=== PATIENT | male | born 1985 | race American Indian/Alaskan Native ===

== ENCOUNTER 2018-05-25 15:28 | Emergency (ER) | payer MEDICAID ==
[~2018-05-25] VITALS: Ht 188 cm; Wt 107.7 kg
[2018-05-25 15:38] VITALS: BP 138/86
== END 2018-05-25 15:52 | disposition home or self-care (01) ==
LOC: ER 15:28
DX: S80.11XA Contusion of right lower leg, initial encounter (principal); M79.642 Pain in left hand; G89.29 Other chronic pain; W22.8XXA Striking against or struck by other objects, initial encounter; Y93.89 Activity, other specified; Y92.89 Other specified places as the place of occurrence of the external cause; Y99.8 Other external cause status
CPT/HCPCS: 99283

== ENCOUNTER 2021-10-10 11:54 | Inpatient (IN) | payer MEDICAID ==
[~2021-10-10] VITALS: Ht 188 cm; Wt 129.1 kg
[2021-10-10] MEDS ORDERED: normal saline 1000ml 1,000 ML IV ONE ×2 (12:40)
[2021-10-10] MEDS ORDERED: normal saline 1000ML IV soln IVB ONE ×2 (12:40→14:55)
[2021-10-10 13:07] LABS: BASOPHILS # (AUTO) 0.1 X10'3 (0-0.2); BASOPHILS % (AUTO) 0.3 % (0-1); EOSINOPHILS % (AUTO) 0 % (0-6); HEMATOCRIT 49.9 % (42.0-52.0); HEMOGLOBIN 16.5 g/dl (14.0-17.9); LYMPHOCYTES # (AUTO) 1.9 X10'3 (1.1-4.8); LYMPHOCYTES % (AUTO) 5.2 % (21-51); MEAN CORPUSCULAR HGB CONC 32.9 g/dL (33.0-36.5); MEAN CORPUSCULAR VOLUME 88.1 FL (78-98); MEAN PLATELET VOLUME 9.6 FL (7.4-10.4); MONOCYTES # (AUTO) 3.3 X10'3 (0-0.9); MONOCYTES % (AUTO) 8.9 % (2-12); NEUTROPHILS # (AUTO) 31.4 X10'3 (1.8-7.7); NEUTROPHILS % (AUTO) 85.6 % (42-75); PLATELET COUNT 255 X10'3 (140-440); RED BLOOD COUNT 5.67 X10'6 (4.70-6.10); RED CELL DISTRIBUTION WIDTH 13.8 % (11.5-14.5)
[2021-10-10 13:09] LABS: WHITE BLOOD COUNT 36.7 X10'3 (4.5-11.0)
[2021-10-10 13:34] LABS: ALANINE AMINOTRANSFERASE 113 U/L (12-78); ALBUMIN 4.2 G/DL (3.4-5.0); ALBUMIN/GLOBULIN RATIO 1.3 (1.1-1.5); ALKALINE PHOSPHATASE 72 IU/L (46-116); ANION GAP 21 (8-16); ASPARTATE AMINO TRANSFERASE 489 U/L (10-37); BILIRUBIN,TOTAL 0.9 MG/DL (0.1-1.0); BLOOD UREA NITROGEN 27 MG/DL (7-18); BUN/CREATININE RATIO 6.6 (5.4-32.0); CALCIUM 8.5 MG/DL (8.5-10.1); CHLORIDE 97 MMOL/L (99-107); CREATININE 4.07 MG/DL (0.60-1.10); GLUCOSE 103 MG/DL (70-104); SODIUM 134 MMOL/L (135-145); TOTAL CARBON DIOXIDE 16.2 MMOL/L (24-32); TOTAL PROTEIN 7.5 G/DL (6.4-8.2); eGFR 17 ML/MIN
[2021-10-10 13:36] LABS: LARGE PLATELETS FEW; PLATELET ESTIMATE NORMAL; POTASSIUM 2.9 MMOL/L (3.5-5.1); TOTAL CELLS COUNTED 100
[2021-10-10 14:17] LABS: CREATINE KINASE 38178 U/L (39-308)
[2021-10-10] MEDS ORDERED: potassium Cl 20 mEq SR tablet PO STA (14:27)
[2021-10-10] MEDS ORDERED: CefTRIAXone 2gm/NS 100ml IVPB 100 ML IV ONE (14:55)
[2021-10-10] MEDS ORDERED: vancomycin inj 2,000 MG in normal saline 500ml IV soln 500 ML IV ONE (15:05)
[2021-10-10] MEDS ORDERED: acetaminophen 325mg tablet PO ONE (15:10)
--- NOTE | 2021-10-10 15:10 | NUR ---
dr modi at bedside .
--- NOTE | 2021-10-10 15:17 | NUR ---
TO CT SCAN.
[2021-10-10 15:23] LABS: BASOPHILS # (AUTO) 0.1 X10'3 (0-0.2); BASOPHILS % (AUTO) 0.2 % (0-1); EOSINOPHILS % (AUTO) 0 % (0-6); HEMATOCRIT 45.5 % (42.0-52.0); HEMOGLOBIN 15.2 g/dl (14.0-17.9); LYMPHOCYTES # (AUTO) 1.5 X10'3 (1.1-4.8); LYMPHOCYTES % (AUTO) 4.9 % (21-51); MEAN CORPUSCULAR HEMOGLOBIN 29.1 PG (27.0-31.0); MEAN CORPUSCULAR HGB CONC 33.4 g/dL (33.0-36.5); MEAN CORPUSCULAR VOLUME 87.1 FL (78-98); MEAN PLATELET VOLUME 9.5 FL (7.4-10.4); MONOCYTES # (AUTO) 1.9 X10'3 (0-0.9); MONOCYTES % (AUTO) 6.4 % (2-12); NEUTROPHILS # (AUTO) 26.6 X10'3 (1.8-7.7); NEUTROPHILS % (AUTO) 88.5 % (42-75); PLATELET COUNT 203 X10'3 (140-440); RED BLOOD COUNT 5.23 X10'6 (4.70-6.10); RED CELL DISTRIBUTION WIDTH 13.4 % (11.5-14.5)
[2021-10-10] MEDS ORDERED: vancomycin/NS 1 GM ADD-VANTAGE 250 ML IV ONE ×2 (15:30→17:00)
--- NOTE | 2021-10-10 15:32 | NUR ---
lac with crit jean wbc 30k nurse and informed
[2021-10-10] MEDS ORDERED: magnesium 2GM in 50ml NS 50 ML IV PRN (15:50)
[2021-10-10] MEDS ORDERED: magnesium Cl slow-release 64mg tablet PO PRN (15:50)
[2021-10-10] MEDS ORDERED: magnesium hydroxide 30ml (MOM) UD suspension PO PRN (15:50)
[2021-10-10] MEDS ORDERED: magnesium 4gm in 100ml NS 100 ML IV PRN (15:50)
[2021-10-10] MEDS ORDERED: POTASSIUM BICARB 20meq eff tab 20 MEQ TABLET.EFF PO PRN (15:50)
[2021-10-10] MEDS ORDERED: mag hydrox/Alum hydrox/simeth 30ml oral suspension PO PRN (15:50)
[2021-10-10] MEDS ORDERED: LORazepam 2 mg/ml vial IV PRN (15:50)
[2021-10-10] MEDS ORDERED: potassium Cl 20mEq in NS 1,000 ML IV SCH (15:50)
[2021-10-10] MEDS ORDERED: acetaminophen 650mg rectal suppository RC PRN (15:50)
[2021-10-10] MEDS ORDERED: acetaminophen 325mg tablet PO PRN (15:50)
[2021-10-10] MEDS ORDERED: ondansetron 4mg rapidly disintigrating tab PO PRN (15:50)
[2021-10-10] MEDS ORDERED: bisacodyl 10mg suppository rectal RC PRN (15:50)
[2021-10-10] MEDS ORDERED: ondansetron/PF 4mg/2ml inj IV PRN (15:50)
[2021-10-10] MEDS ORDERED: potassium CL 10mEq/100ml bag 100 ML IV PRN (15:50)
--- NOTE | 2021-10-10 16:00 | NUR ---
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
--- NOTE | 2021-10-10 16:09 | NUR ---
Eric barksdale in [facility] - 10/10/21 at 1610 by YVES PT MOVED FROM FT TO MAIN ER ROOM 12, REPORT RECIEVED FROM FT NURSE
--- NOTE | 2021-10-10 16:23 | NUR ---
NOTIFIED THE PHARMACIST THAT UNABLE TO VANCOMYCIN AND PT KIDNEY FUNCTION IS BAD CRE IS ABOVE 4 AND THERE IS ORDER FOR POTASSIUM AND VANCOMYCIN,PT RECIVED 40 MEQ POTASSIUM PO ONCE PER DR ROWLEY DO NOT ADMIN MORE k+ PT KIDNEY FUNCTION IS NOT WITHIN RANGE.
[2021-10-10] MEDS ORDERED: NO HOME MEDS (16:50)
--- NOTE | 2021-10-10 16:55 | NUR ---
spoke to dr modi regarding pottasium level and informed that pt recived the 40 meq of potassium po once and pt creatnine is above 4 is it okay to start the potassium 20 meq drip started ? as per dr modi cancel potassium drip and change to n.s at 150 ml/hr.repeat the k+level in 1 hr and then replace the k+ based on patient k+ level .will follow the orders.
[2021-10-10] MEDS: normal saline 1000ml 1,000 ML IV SCH (17:33)
[2021-10-10] MEDS: LORazepam 2 mg/ml vial IV PRN ×2 (17:43→22:01)
--- NOTE | 2021-10-10 18:46 | NUR ---
ASSUMED CARE OF PT. RECIEVED BEDSIDE REPORT. PT SITTING UP IN BED. 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 RN REPORTS THIS IS NOT A NEW DEVELOPMENT.
[2021-10-10] MEDS: K and/or MAG REPLACEMENT MC SCH (20:12)
[2021-10-10] MEDS: POTASSIUM BICARB 20meq eff tab 20 MEQ TABLET.EFF PO PRN (20:12)
[2021-10-10] MEDS: LORazepam 0.5 MG tablet PO PRN (20:13)
[2021-10-10] MEDS: heparin, porcine 5000 units/ml vial SQ SCH (20:14)
[2021-10-10 20:46] LABS: CLARITY,URINE CLEAR (Clear); COLOR,URINE YELLOW (Yellow); GLUCOSE, URINE NEGATIVE (Neg); KETONES,URINE NEGATIVE (Neg); LEUKOCYTE ESTERASE ,URINE NEGATIVE (Neg); NITRITES, URINE NEGATIVE (Neg); OCCULT BLOOD,URINE LARGE (Neg); PH,URINE 5.5 (4.8-8.0); PROTEIN,URINE 100 mg/dl (Neg); UROBILINOGEN,URINE 0.2 E.U/dL (0.2-1.0)
[2021-10-10 20:50] LABS: UA COLLECTION TYPE NON-SPECIFIED
[2021-10-10 21:00] LABS: BACTERIA,URINE FEW /HPF (Neg); HYALINE CASTS 0-3 /LPF (NEGATIVE); MUCUS STRANDS FEW /LPF (Neg); SQUAMOUS EPITHELIAL CELL,UR FEW /LPF (FEW)
[2021-10-10] MEDS ORDERED: temazepam 15mg capsule PO PRN (21:00)
[2021-10-10 21:01] LABS: FINE GRANULAR CAST 0-3 /LPF (NEGATIVE)
[2021-10-11] MEDS: normal saline 1000ml 1,000 ML IV SCH ×4 (00:10→16:02)
[2021-10-11 01:48] LABS: BASOPHILS % (AUTO) 0.2 % (0-1); EOSINOPHILS % (AUTO) 0 % (0-6); HEMOGLOBIN 14.5 g/dl (14.0-17.9); LYMPHOCYTES # (AUTO) 2.2 X10'3 (1.1-4.8); LYMPHOCYTES % (AUTO) 8.2 % (21-51); MEAN CORPUSCULAR HEMOGLOBIN 29.8 PG (27.0-31.0); MEAN CORPUSCULAR HGB CONC 33.8 g/dL (33.0-36.5); MEAN CORPUSCULAR VOLUME 88.1 FL (78-98); MEAN PLATELET VOLUME 9.8 FL (7.4-10.4); MONOCYTES # (AUTO) 1.5 X10'3 (0-0.9); MONOCYTES % (AUTO) 5.6 % (2-12); NEUTROPHILS # (AUTO) 22.8 X10'3 (1.8-7.7); PLATELET COUNT 187 X10'3 (140-440); RED BLOOD COUNT 4.88 X10'6 (4.70-6.10); RED CELL DISTRIBUTION WIDTH 13.6 % (11.5-14.5)
[2021-10-11 02:02] LABS: WHITE BLOOD COUNT 26.5 X10'3 (4.5-11.0)
[2021-10-11 02:11] LABS: ALANINE AMINOTRANSFERASE 110 U/L (12-78); ALBUMIN 3.2 G/DL (3.4-5.0); ALBUMIN/GLOBULIN RATIO 1.1 (1.1-1.5); ALKALINE PHOSPHATASE 53 IU/L (46-116); ANION GAP 12 (8-16); ASPARTATE AMINO TRANSFERASE 403 U/L (10-37); BILIRUBIN,TOTAL 1.1 MG/DL (0.1-1.0); BLOOD UREA NITROGEN 25 MG/DL (7-18); BUN/CREATININE RATIO 10.6 (5.4-32.0); CALCIUM 7.8 MG/DL (8.5-10.1); CHLORIDE 103 MMOL/L (99-107); CREATININE 2.36 MG/DL (0.60-1.10); GLUCOSE 134 MG/DL (70-104); MAGNESIUM 1.8 MG/DL (1.5-2.4); POTASSIUM 3.8 MMOL/L (3.5-5.1); SODIUM 133 MMOL/L (135-145); TOTAL CARBON DIOXIDE 17.6 MMOL/L (24-32); TOTAL PROTEIN 6.1 G/DL (6.4-8.2); eGFR 32 ML/MIN
[2021-10-11 03:45] LABS: TOTAL CELLS COUNTED 100
[2021-10-11 03:46] LABS: PLATELET ESTIMATE NORMAL; TOXIC GRANULATION 1+
--- NOTE | 2021-10-11 04:14 | NUR ---
PT HAD A LARGE VERY LOOSE BM. LINENS CHANGED
--- NOTE | 2021-10-11 05:01 | NUR ---
PT MOVED TO HOSPITAL BED FOR MORE COMFORT.
[2021-10-11] MEDS: LORazepam 2 mg/ml vial IV PRN (05:06)
[2021-10-11] MEDS ORDERED: LORazepam 2 mg/ml vial IV ONE (05:20)
--- NOTE | 2021-10-11 05:23 | NUR ---
TALKED TO DR MO CONCERNING PT'S HEART RATE. HAVE GIVEN ATIVAN BUT PT IS LARGE. HE GAVE TELEPHONE FOR 2 MG OF ATIVAN IV NOW.
[2021-10-11] MEDS: K and/or MAG REPLACEMENT MC SCH ×2 (07:38→20:17)
[2021-10-11] MEDS: heparin, porcine 5000 units/ml vial SQ SCH ×2 (07:48→20:21)
[2021-10-11] MEDS ORDERED: cefTRIAXone 1g/NS 100ml IVPB 100 ML IV SCH (08:00)
[2021-10-11 09:46] LABS: HIV ANTIBODY 1&2 RAPID NON-REACTIVE (Neg)
[2021-10-11 09:58] LABS: CREATINE KINASE 29643 U/L (39-308)
[2021-10-11] MEDS: piperacillin/tazo 3.375gm/50ml 50 ML IV SCH ×2 (10:29→16:02)
[2021-10-11 12:49] LABS: URINE AMPHETAMINE SCREEN POSITIVE (Neg); URINE BARBITUATE SCREEN NEGATIVE (Neg); URINE BENZODIAZEPINES SCREEN NEGATIVE (Neg); URINE CANNABINOID SCREEN NEGATIVE (Neg); URINE COCAINE SCREEN NEGATIVE (Neg); URINE METHADONE SCREEN NEGATIVE (Neg); URINE OPIATE SCREEN NEGATIVE (Neg); URINE PHENCYCLIDINE SCREEN NEGATIVE (Neg)
[2021-10-11 14:53] LABS: CREATINE KINASE 29628 U/L (39-308)
[2021-10-11] MEDS ORDERED: VANCOMYCIN 750MG IV in NS 250 ML IV SCH (17:00)
[2021-10-11] MEDS: vancomycin/NS 1 GM ADD-VANTAGE 250 ML IV SCH (17:30)
[2021-10-11 20:29] VITALS: BP 131/75
--- NOTE | 2021-10-11 20:32 | NUR ---
PT placed on TELE per MD order. Pt tele #[id number]
[2021-10-11 20:37] LABS: CREATINE KINASE 34066 U/L (39-308)
[2021-10-12] MEDS: piperacillin/tazo 3.375gm/50ml 50 ML IV SCH ×3 (00:21→17:13)
--- NOTE | 2021-10-12 00:37 | NUR ---
received call from tele pt had high bp of 140, with rr in the 40s. pt laying on stomach. pt denies any chest pain or discomfort. MD Archuleta notified. new orders received and imputed.
[2021-10-12] MEDS: sodium bicarbonate (8.4%) inj. 150 MEQ in dextrose 5%-water 1,000 ML IV SCH ×4 (01:13→23:30)
[2021-10-12 02:31] LABS: BASOPHILS % (AUTO) 0.2 % (0-1); EOSINOPHILS % (AUTO) 0 % (0-6); HEMATOCRIT 35.7 % (42.0-52.0); HEMOGLOBIN 12.1 g/dl (14.0-17.9); LYMPHOCYTES # (AUTO) 1.5 X10'3 (1.1-4.8); LYMPHOCYTES % (AUTO) 8.7 % (21-51); MEAN CORPUSCULAR HEMOGLOBIN 29.4 PG (27.0-31.0); MEAN CORPUSCULAR VOLUME 86.4 FL (78-98); MEAN PLATELET VOLUME 9.7 FL (7.4-10.4); MONOCYTES % (AUTO) 5.7 % (2-12); NEUTROPHILS # (AUTO) 14.8 X10'3 (1.8-7.7); NEUTROPHILS % (AUTO) 85.4 % (42-75); PLATELET COUNT 117 X10'3 (140-440); RED BLOOD COUNT 4.13 X10'6 (4.70-6.10); RED CELL DISTRIBUTION WIDTH 13.2 % (11.5-14.5); WHITE BLOOD COUNT 17.3 X10'3 (4.5-11.0)
--- NOTE | 2021-10-12 02:59 | NUR ---
PTs 20G in L ac as well as 20G in R wrist became compromised. no s/s of redness or infiltration. PT denies any c/o pain to the sites. New 20G placed in L posterior forearm. Flushes well, no c/o pain to the site. Infusions running per MD order.
[2021-10-12 03:27] LABS: ALANINE AMINOTRANSFERASE 168 U/L (12-78); ALBUMIN 2.6 G/DL (3.4-5.0); ALBUMIN/GLOBULIN RATIO 0.9 (1.1-1.5); ALKALINE PHOSPHATASE 46 IU/L (46-116); ANION GAP 11 (8-16); ASPARTATE AMINO TRANSFERASE 590 U/L (10-37); BILIRUBIN,TOTAL 0.5 MG/DL (0.1-1.0); BLOOD UREA NITROGEN 17 MG/DL (7-18); BUN/CREATININE RATIO 10.3 (5.4-32.0); CALCIUM 7.9 MG/DL (8.5-10.1); CHLORIDE 106 MMOL/L (99-107); CREATININE 1.65 MG/DL (0.60-1.10); GLUCOSE 121 MG/DL (70-104); POTASSIUM 3.5 MMOL/L (3.5-5.1); SODIUM 137 MMOL/L (135-145); TOTAL CARBON DIOXIDE 20.2 MMOL/L (24-32); TOTAL PROTEIN 5.6 G/DL (6.4-8.2); eGFR 48 ML/MIN
[2021-10-12 03:46] LABS: CREATINE KINASE 35385 U/L (39-308)
[2021-10-12 04:00] VITALS: BP 131/72
[2021-10-12] MEDS: vancomycin/NS 1 GM ADD-VANTAGE 250 ML IV SCH ×2 (05:40→16:54)
--- NOTE | 2021-10-12 06:24 | NUR ---
I agree with RENU Archer assessments, documentation, and report given to RENU Pastrana
--- NOTE | 2021-10-12 06:34 | NUR ---
reported off to misa nguyen.
--- NOTE | 2021-10-12 06:37 | NUR ---
Patient in room ORTHO 4010. I have received report from RENU Archer and had the opportunity to ask questions and assume patient care.
[2021-10-12] MEDS ORDERED: PERFLUTREN PROTEIN-A MICROSPHR (Optison) 0.22 MG/ML 3ML VIAL IV ONE (08:00)
[2021-10-12] MEDS: K and/or MAG REPLACEMENT MC SCH ×2 (08:00→19:56)
[2021-10-12] MEDS: heparin, porcine 5000 units/ml vial SQ SCH ×2 (08:19→19:51)
[2021-10-12 10:00] VITALS: BP 130/78
[2021-10-12 11:08] LABS: HBSAG SCREEN Negative (Negative); HEP A AB, IGM Negative (Negative); HEPATITIS C ANTIBODY >11.0 s/co ratio (0.0-0.9)
[2021-10-12 11:33] LABS: CREATINE KINASE 31758 U/L (39-308)
[2021-10-12 13:11] LABS: CREATINE KINASE 27260 U/L (39-308)
[2021-10-12 14:00] VITALS: BP 135/77
[2021-10-12 18:00] VITALS: BP 131/65
--- NOTE | 2021-10-12 18:50 | NUR ---
Problems reprioritized. Patient report given, questions answered & plan of care reviewed with RENU Shepherd.
--- NOTE | 2021-10-12 18:52 | NUR ---
Patient in room ORTHO 4010. I have received report from DUNCAN SEARS and had the opportunity to ask questions and assume patient care.
[2021-10-12 19:33] LABS: CREATINE KINASE 9379 U/L (39-308)
[2021-10-12 22:00] VITALS: BP 146/86
[2021-10-13] MEDS: piperacillin/tazo 3.375gm/50ml 50 ML IV SCH ×4 (00:27→23:48)
[2021-10-13] MEDS: sodium bicarbonate (8.4%) inj. 150 MEQ in dextrose 5%-water 1,000 ML IV SCH (03:42)
[2021-10-13] MEDS ORDERED: VANCOMYCIN LEVEL IV ONE (04:30)
[2021-10-13 05:30] VITALS: BP 150/78
[2021-10-13] MEDS: vancomycin/NS 1 GM ADD-VANTAGE 250 ML IV SCH (05:41)
--- NOTE | 2021-10-13 06:45 | NUR ---
Patient in room ORTHO 4010. I have received report from Charley Whitehead RN and had the opportunity to ask questions and assume patient care.
[2021-10-13 07:15] LABS: BASOPHILS % (AUTO) 0.4 % (0-1); EOSINOPHILS # (AUTO) 0.1 X10'3 (0-0.9); EOSINOPHILS % (AUTO) 0.7 % (0-6); HEMATOCRIT 35.6 % (42.0-52.0); HEMOGLOBIN 12.1 g/dl (14.0-17.9); LYMPHOCYTES # (AUTO) 1.5 X10'3 (1.1-4.8); MEAN CORPUSCULAR HEMOGLOBIN 29.9 PG (27.0-31.0); MEAN CORPUSCULAR HGB CONC 33.9 g/dL (33.0-36.5); MEAN CORPUSCULAR VOLUME 88.1 FL (78-98); MEAN PLATELET VOLUME 10.7 FL (7.4-10.4); MONOCYTES # (AUTO) 0.6 X10'3 (0-0.9); MONOCYTES % (AUTO) 5.2 % (2-12); NEUTROPHILS # (AUTO) 8.7 X10'3 (1.8-7.7); NEUTROPHILS % (AUTO) 79.7 % (42-75); PLATELET COUNT 153 X10'3 (140-440); RED BLOOD COUNT 4.05 X10'6 (4.70-6.10); RED CELL DISTRIBUTION WIDTH 13.3 % (11.5-14.5); WHITE BLOOD COUNT 10.9 X10'3 (4.5-11.0)
[2021-10-13 07:21] LABS: ALANINE AMINOTRANSFERASE 235 U/L (12-78); ALBUMIN 2.3 G/DL (3.4-5.0); ALBUMIN/GLOBULIN RATIO 0.7 (1.1-1.5); ALKALINE PHOSPHATASE 46 IU/L (46-116); ANION GAP 6 (8-16); ASPARTATE AMINO TRANSFERASE 468 U/L (10-37); BILIRUBIN,TOTAL 0.5 MG/DL (0.1-1.0); BLOOD UREA NITROGEN 10 MG/DL (7-18); BUN/CREATININE RATIO 7.4 (5.4-32.0); CHLORIDE 106 MMOL/L (99-107); CREATININE 1.36 MG/DL (0.60-1.10); GLUCOSE 101 MG/DL (70-104); POTASSIUM 3.2 MMOL/L (3.5-5.1); SODIUM 141 MMOL/L (135-145); TOTAL CARBON DIOXIDE 29.1 MMOL/L (24-32); TOTAL PROTEIN 5.5 G/DL (6.4-8.2); eGFR 60 ML/MIN
[2021-10-13 07:32] LABS: VANCOMYCIN,TROUGH 7.8 UG/ML (6.0-14.0)
[2021-10-13] MEDS: K and/or MAG REPLACEMENT MC SCH ×2 (07:47→20:00)
[2021-10-13 08:24] LABS: CREATINE KINASE 5695 U/L (39-308)
[2021-10-13 10:00] VITALS: BP 125/76
[2021-10-13] MEDS: normal saline 1000ml 1,000 ML IV SCH ×3 (11:10→23:49)
[2021-10-13] MEDS: acetaminophen 325mg tablet PO PRN (11:27)
[2021-10-13] MEDS: heparin, porcine 5000 units/ml vial SQ SCH ×2 (12:10→20:02)
[2021-10-13] MEDS: POTASSIUM BICARB 20meq eff tab 20 MEQ TABLET.EFF PO PRN ×3 (12:14→20:08)
--- NOTE | 2021-10-13 13:12 | NUR ---
Patient in room ORTHO 4010. I have received report from Cassy and had the opportunity to ask questions and assume patient care.
--- NOTE | 2021-10-13 13:30 | NUR ---
Problems reprioritized. Patient report given, questions answered & plan of care reviewed with RENU Huber.
[2021-10-13 14:00] VITALS: BP 134/77
[2021-10-13] MEDS ORDERED: magnesium 2GM in 50ml NS 50 ML IV PRN (16:05)
[2021-10-13] MEDS ORDERED: POTASSIUM BICARB 20meq eff tab 20 MEQ TABLET.EFF PO PRN (16:05)
[2021-10-13] MEDS ORDERED: magnesium Cl slow-release 64mg tablet PO PRN (16:05)
[2021-10-13] MEDS ORDERED: potassium CL 10mEq/100ml bag 100 ML IV PRN (16:10)
[2021-10-13] MEDS ORDERED: magnesium 4gm in 100ml NS 100 ML IV PRN (16:10)
[2021-10-13] MEDS ORDERED: VANCOmycin 1250MG/NS 250ml Bag 250 ML IV SCH (17:00)
[2021-10-13 18:00] VITALS: BP 129/80
--- NOTE | 2021-10-13 18:35 | NUR ---
Problems reprioritized. Patient report given, questions answered & plan of care reviewed with Cora.
--- NOTE | 2021-10-13 18:40 | NUR ---
Patient in room ORTHO 4010. I have received report from LANETTE Sue RN and had the opportunity to ask questions and assume patient care.
[2021-10-13 22:00] VITALS: BP 127/77
[2021-10-14 06:00] VITALS: BP 131/81
--- NOTE | 2021-10-14 06:27 | NUR ---
Problems reprioritized. Patient report given, questions answered & plan of care reviewed with ОЛЕГ SEARS.
--- NOTE | 2021-10-14 06:47 | NUR ---
Patient in room ORTHO 4010. I have received report from RENU Sharma and had the opportunity to ask questions and assume patient care.
--- NOTE | 2021-10-14 07:46 | NUR ---
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 Currently on Regular diet w/ 100% intake of meals though only partially meeting needs. Will provide double protein TID to assist w/ meeting increased needs. [facility] 10/13. Will continue to monitor and make recommendations as appropriate. Recs: 1. Continue Regular diet as tolerated 2. Double protein TID 3. Bowel care per rx 4. Weekly wts Addendum: 10/14/21 at [address] Amended: Links added.
[2021-10-14] MEDS: piperacillin/tazo 3.375gm/50ml 50 ML IV SCH ×3 (07:47→23:43)
[2021-10-14 07:49] LABS: BASOPHILS % (AUTO) 0.4 % (0-1); EOSINOPHILS # (AUTO) 0.2 X10'3 (0-0.9); EOSINOPHILS % (AUTO) 1.3 % (0-6); HEMATOCRIT 35.6 % (42.0-52.0); HEMOGLOBIN 11.8 g/dl (14.0-17.9); LYMPHOCYTES # (AUTO) 1.6 X10'3 (1.1-4.8); LYMPHOCYTES % (AUTO) 13.3 % (21-51); MEAN CORPUSCULAR VOLUME 87.9 FL (78-98); MEAN PLATELET VOLUME 10.9 FL (7.4-10.4); MONOCYTES # (AUTO) 0.8 X10'3 (0-0.9); MONOCYTES % (AUTO) 7.1 % (2-12); NEUTROPHILS # (AUTO) 9.1 X10'3 (1.8-7.7); NEUTROPHILS % (AUTO) 77.9 % (42-75); PLATELET COUNT 182 X10'3 (140-440); RED BLOOD COUNT 4.05 X10'6 (4.70-6.10); RED CELL DISTRIBUTION WIDTH 13.4 % (11.5-14.5); WHITE BLOOD COUNT 11.7 X10'3 (4.5-11.0)
[2021-10-14] MEDS: acetaminophen 325mg tablet PO PRN ×2 (07:50→19:48)
[2021-10-14] MEDS: heparin, porcine 5000 units/ml vial SQ SCH ×2 (07:56→19:47)
[2021-10-14] MEDS: K and/or MAG REPLACEMENT MC SCH ×2 (08:00→19:50)
[2021-10-14 08:21] LABS: ALANINE AMINOTRANSFERASE 294 U/L (12-78); ALBUMIN 2.5 G/DL (3.4-5.0); ALBUMIN/GLOBULIN RATIO 0.7 (1.1-1.5); ALKALINE PHOSPHATASE 53 IU/L (46-116); ANION GAP 7 (8-16); ASPARTATE AMINO TRANSFERASE 402 U/L (10-37); BILIRUBIN,TOTAL 0.6 MG/DL (0.1-1.0); BLOOD UREA NITROGEN 9 MG/DL (7-18); CALCIUM 8.3 MG/DL (8.5-10.1); CHLORIDE 107 MMOL/L (99-107); CREATININE 1.28 MG/DL (0.60-1.10); GLUCOSE 91 MG/DL (70-104); MAGNESIUM 2.1 MG/DL (1.5-2.4); POTASSIUM 3.8 MMOL/L (3.5-5.1); SODIUM 138 MMOL/L (135-145); TOTAL PROTEIN 5.9 G/DL (6.4-8.2); eGFR 64 ML/MIN
[2021-10-14 08:37] LABS: CREATINE KINASE 15579 U/L (39-308)
[2021-10-14] MEDS: normal saline 1000ml 1,000 ML IV SCH ×2 (09:59→19:47)
[2021-10-14 10:00] VITALS: BP 147/76
--- NOTE | 2021-10-14 18:50 | NUR ---
Today I was off ratio again with 6 patients so medication administration and patient care was delayed.
--- NOTE | 2021-10-14 18:51 | NUR ---
Problems reprioritized. Patient report given, questions answered & plan of care reviewed with RENU Be.
[2021-10-14 22:00] VITALS: BP 141/79
[2021-10-15] MEDS: normal saline 1000ml 1,000 ML IV SCH ×3 (03:10→21:07)
[2021-10-15] MEDS ORDERED: VANCOMYCIN LEVEL IV ONE (04:30)
[2021-10-15 05:04] LABS: BASOPHILS % (AUTO) 0.3 % (0-1); EOSINOPHILS # (AUTO) 0.2 X10'3 (0-0.9); EOSINOPHILS % (AUTO) 2.2 % (0-6); HEMATOCRIT 37.3 % (42.0-52.0); HEMOGLOBIN 12.6 g/dl (14.0-17.9); LYMPHOCYTES # (AUTO) 1.6 X10'3 (1.1-4.8); LYMPHOCYTES % (AUTO) 15.3 % (21-51); MEAN CORPUSCULAR HEMOGLOBIN 29.5 PG (27.0-31.0); MEAN CORPUSCULAR HGB CONC 33.9 g/dL (33.0-36.5); MEAN PLATELET VOLUME 10.4 FL (7.4-10.4); MONOCYTES # (AUTO) 0.8 X10'3 (0-0.9); MONOCYTES % (AUTO) 7.2 % (2-12); NEUTROPHILS # (AUTO) 7.9 X10'3 (1.8-7.7); PLATELET COUNT 212 X10'3 (140-440); RED BLOOD COUNT 4.28 X10'6 (4.70-6.10); RED CELL DISTRIBUTION WIDTH 13.1 % (11.5-14.5); WHITE BLOOD COUNT 10.6 X10'3 (4.5-11.0)
[2021-10-15 05:09] LABS: ALANINE AMINOTRANSFERASE 223 U/L (12-78); ALBUMIN 2.5 G/DL (3.4-5.0); ALBUMIN/GLOBULIN RATIO 0.7 (1.1-1.5); ALKALINE PHOSPHATASE 53 IU/L (46-116); ANION GAP 6 (8-16); ASPARTATE AMINO TRANSFERASE 180 U/L (10-37); BILIRUBIN,TOTAL 0.4 MG/DL (0.1-1.0); BLOOD UREA NITROGEN 11 MG/DL (7-18); BUN/CREATININE RATIO 9.2 (5.4-32.0); CALCIUM 8.4 MG/DL (8.5-10.1); CHLORIDE 108 MMOL/L (99-107); GLUCOSE 94 MG/DL (70-104); POTASSIUM 4.1 MMOL/L (3.5-5.1); SODIUM 139 MMOL/L (135-145); TOTAL CARBON DIOXIDE 24.7 MMOL/L (24-32); TOTAL PROTEIN 6.1 G/DL (6.4-8.2); eGFR 69 ML/MIN
[2021-10-15 05:18] LABS: MAGNESIUM 2.2 MG/DL (1.5-2.4); PHOSPHORUS 3.6 MG/DL (2.3-4.5); VANCOMYCIN,TROUGH 2.4 UG/ML (6.0-14.0)
[2021-10-15 05:20] LABS: CREATINE KINASE 4725 U/L (39-308)
[2021-10-15 06:00] VITALS: BP 135/85
--- NOTE | 2021-10-15 06:35 | NUR ---
Problems reprioritized. Patient report given, questions answered & plan of care reviewed with RENU Valadez.
--- NOTE | 2021-10-15 06:54 | NUR ---
Patient in room ORTHO 4010. I have received report from RENU Be and had the opportunity to ask questions and assume patient care.
[2021-10-15] MEDS: heparin, porcine 5000 units/ml vial SQ SCH ×2 (07:21→21:06)
[2021-10-15] MEDS: piperacillin/tazo 3.375gm/50ml 50 ML IV SCH ×3 (07:21→23:35)
[2021-10-15] MEDS: LORazepam 0.5 MG tablet PO PRN ×2 (07:22→12:48)
[2021-10-15] MEDS: K and/or MAG REPLACEMENT MC SCH ×2 (07:30→20:00)
[2021-10-15 10:00] VITALS: BP 137/78
--- NOTE | 2021-10-15 12:18 | NUR ---
Put in order for wound care consult for scabs on underwear line and blister in between buttocks.
[2021-10-15] MEDS: acetaminophen 325mg tablet PO PRN ×2 (14:11→21:08)
[2021-10-15] MEDS: LORazepam 1 MG tablet PO PRN ×2 (16:40→21:08)
--- NOTE | 2021-10-15 17:52 | NUR ---
Called tele box - patient is in SR in the 's.
[2021-10-15 18:00] VITALS: BP 132/80
--- NOTE | 2021-10-15 18:33 | NUR ---
Problems reprioritized. Patient report given, questions answered & plan of care reviewed with RENU Be.
[2021-10-15 22:00] VITALS: BP 135/75
[2021-10-16 02:00] VITALS: BP 124/71
[2021-10-16] MEDS: normal saline 1000ml 1,000 ML IV SCH ×3 (03:21→21:17)
[2021-10-16 06:00] VITALS: BP 135/86
[2021-10-16 06:12] LABS: BASOPHILS # (AUTO) 0.1 X10'3 (0-0.2); BASOPHILS % (AUTO) 0.8 % (0-1); EOSINOPHILS # (AUTO) 0.2 X10'3 (0-0.9); EOSINOPHILS % (AUTO) 2.5 % (0-6); HEMATOCRIT 39.6 % (42.0-52.0); HEMOGLOBIN 13.2 g/dl (14.0-17.9); LYMPHOCYTES # (AUTO) 1.5 X10'3 (1.1-4.8); LYMPHOCYTES % (AUTO) 16.1 % (21-51); MEAN CORPUSCULAR HEMOGLOBIN 29.2 PG (27.0-31.0); MEAN CORPUSCULAR HGB CONC 33.4 g/dL (33.0-36.5); MEAN CORPUSCULAR VOLUME 87.3 FL (78-98); MEAN PLATELET VOLUME 10.2 FL (7.4-10.4); MONOCYTES # (AUTO) 0.7 X10'3 (0-0.9); MONOCYTES % (AUTO) 7.6 % (2-12); PLATELET COUNT 245 X10'3 (140-440); RED BLOOD COUNT 4.54 X10'6 (4.70-6.10); RED CELL DISTRIBUTION WIDTH 13.1 % (11.5-14.5); WHITE BLOOD COUNT 9.6 X10'3 (4.5-11.0)
--- NOTE | 2021-10-16 06:32 | NUR ---
Problems reprioritized. Patient report given, questions answered & plan of care reviewed with RENU Tesfaye.
[2021-10-16 06:50] LABS: ALANINE AMINOTRANSFERASE 192 U/L (12-78); ALBUMIN 2.7 G/DL (3.4-5.0); ALBUMIN/GLOBULIN RATIO 0.7 (1.1-1.5); ALKALINE PHOSPHATASE 56 IU/L (46-116); ANION GAP 6 (8-16); ASPARTATE AMINO TRANSFERASE 84 U/L (10-37); BILIRUBIN,TOTAL 0.4 MG/DL (0.1-1.0); BLOOD UREA NITROGEN 12 MG/DL (7-18); BUN/CREATININE RATIO 9.7 (5.4-32.0); CALCIUM 8.5 MG/DL (8.5-10.1); CHLORIDE 106 MMOL/L (99-107); CREATININE 1.24 MG/DL (0.60-1.10); GLUCOSE 85 MG/DL (70-104); MAGNESIUM 2.3 MG/DL (1.5-2.4); PHOSPHORUS 3.9 MG/DL (2.3-4.5); POTASSIUM 3.9 MMOL/L (3.5-5.1); SODIUM 136 MMOL/L (135-145); TOTAL CARBON DIOXIDE 23.8 MMOL/L (24-32); TOTAL PROTEIN 6.5 G/DL (6.4-8.2); eGFR 66 ML/MIN
--- NOTE | 2021-10-16 06:50 | NUR ---
Patient in room ORTHO 4010. I have received report from [place] SEARS and had the opportunity to ask questions and assume patient care.
[2021-10-16 06:51] LABS: CREATINE KINASE 1512 U/L (39-308)
[2021-10-16] MEDS: LORazepam 1 MG tablet PO PRN ×3 (07:49→19:05)
[2021-10-16] MEDS: piperacillin/tazo 3.375gm/50ml 50 ML IV SCH ×2 (07:49→15:32)
[2021-10-16] MEDS: heparin, porcine 5000 units/ml vial SQ SCH ×2 (07:50→19:05)
[2021-10-16] MEDS: K and/or MAG REPLACEMENT MC SCH ×2 (08:00→20:00)
[2021-10-16 09:20] VITALS: BP 151/90
[2021-10-16] MEDS: acetaminophen 325mg tablet PO PRN (13:43)
--- NOTE | 2021-10-16 15:52 | NUR ---
Recommend: 1.Assist with routine bathing daily 2.Apply lotion following bathing 3.Assist the pt. with scooter care as needed and per pt. request 4.Remind/assist the pt. to reposition while in bed, float heels 5.GLUTEAL SULCUS FISSUE: Cleanse with NS, pat dry. Apply a thin layer of Calazime DAILY/PRN following toileting/scooter care. Addendum: 10/16/21 at 1553 by Darling Murray LVN Amended: Links added.
[2021-10-16 18:00] VITALS: BP 109/53
--- NOTE | 2021-10-16 18:37 | NUR ---
patient resting most of shift ativan given for anxiety x1 and tylenol x1 for Chronic back pain with good result. Seen by DR lambert. Tele DC'd IV fluids changed to ns@100mls/hr. patient has sitter, will be assessed by [facility]. report given to Conchis SEARS
[2021-10-16 22:00] VITALS: BP 121/66
[2021-10-17] MEDS: normal saline 1000ml 1,000 ML IV SCH ×2 (00:25→08:56)
[2021-10-17] MEDS: piperacillin/tazo 3.375gm/50ml 50 ML IV SCH ×4 (00:25→23:59)
[2021-10-17 06:00] VITALS: BP 119/76
--- NOTE | 2021-10-17 06:20 | NUR ---
Problems reprioritized. Received report, questions answered & plan of care reviewed with RENU Galloway.
[2021-10-17 06:46] LABS: BASOPHILS # (AUTO) 0.1 X10'3 (0-0.2); EOSINOPHILS # (AUTO) 0.2 X10'3 (0-0.9); EOSINOPHILS % (AUTO) 1.9 % (0-6); HEMATOCRIT 38.1 % (42.0-52.0); LYMPHOCYTES # (AUTO) 1.8 X10'3 (1.1-4.8); LYMPHOCYTES % (AUTO) 20.9 % (21-51); MEAN CORPUSCULAR HEMOGLOBIN 30.1 PG (27.0-31.0); MEAN CORPUSCULAR HGB CONC 34.2 g/dL (33.0-36.5); MEAN CORPUSCULAR VOLUME 88.1 FL (78-98); MONOCYTES # (AUTO) 0.6 X10'3 (0-0.9); NEUTROPHILS # (AUTO) 6.1 X10'3 (1.8-7.7); NEUTROPHILS % (AUTO) 69.2 % (42-75); PLATELET COUNT 300 X10'3 (140-440); RED BLOOD COUNT 4.32 X10'6 (4.70-6.10); RED CELL DISTRIBUTION WIDTH 13.4 % (11.5-14.5); WHITE BLOOD COUNT 8.8 X10'3 (4.5-11.0)
[2021-10-17 06:55] LABS: ALANINE AMINOTRANSFERASE 145 U/L (12-78); ALBUMIN 2.6 G/DL (3.4-5.0); ALBUMIN/GLOBULIN RATIO 0.7 (1.1-1.5); ALKALINE PHOSPHATASE 52 IU/L (46-116); ANION GAP 8 (8-16); ASPARTATE AMINO TRANSFERASE 51 U/L (10-37); BILIRUBIN,TOTAL 0.3 MG/DL (0.1-1.0); BLOOD UREA NITROGEN 11 MG/DL (7-18); BUN/CREATININE RATIO 9.6 (5.4-32.0); CALCIUM 8.7 MG/DL (8.5-10.1); CHLORIDE 107 MMOL/L (99-107); CREATINE KINASE 647 U/L (39-308); CREATININE 1.14 MG/DL (0.60-1.10); GLUCOSE 95 MG/DL (70-104); MAGNESIUM 2.2 MG/DL (1.5-2.4); POTASSIUM 4.4 MMOL/L (3.5-5.1); SODIUM 137 MMOL/L (135-145); TOTAL CARBON DIOXIDE 21.9 MMOL/L (24-32); TOTAL PROTEIN 6.4 G/DL (6.4-8.2); eGFR 73 ML/MIN
[2021-10-17] MEDS: K and/or MAG REPLACEMENT MC SCH ×2 (08:00→20:00)
[2021-10-17] MEDS: heparin, porcine 5000 units/ml vial SQ SCH ×2 (08:49→21:00)
[2021-10-17] MEDS: LORazepam 1 MG tablet PO PRN ×2 (08:53→16:58)
[2021-10-17] MEDS: acetaminophen 325mg tablet PO PRN (08:53)
[2021-10-17 10:00] VITALS: BP 133/79
[2021-10-17] MEDS: LORazepam 0.5 MG tablet PO PRN (20:59)
[2021-10-17 22:00] VITALS: BP 127/74
--- NOTE | 2021-10-18 06:35 | NUR ---
Patient in room ORTHO 4009. I have received report from Loraine SEARS and had the opportunity to ask questions and assume patient care.
[2021-10-18 07:18] LABS: BASOPHILS # (AUTO) 0.1 X10'3 (0-0.2); BASOPHILS % (AUTO) 0.7 % (0-1); EOSINOPHILS # (AUTO) 0.2 X10'3 (0-0.9); EOSINOPHILS % (AUTO) 1.8 % (0-6); HEMATOCRIT 38.9 % (42.0-52.0); HEMOGLOBIN 13.2 g/dl (14.0-17.9); LYMPHOCYTES % (AUTO) 24.3 % (21-51); MEAN CORPUSCULAR HEMOGLOBIN 29.7 PG (27.0-31.0); MEAN CORPUSCULAR HGB CONC 33.9 g/dL (33.0-36.5); MEAN CORPUSCULAR VOLUME 87.8 FL (78-98); MEAN PLATELET VOLUME 10.8 FL (7.4-10.4); MONOCYTES # (AUTO) 0.6 X10'3 (0-0.9); MONOCYTES % (AUTO) 7.6 % (2-12); NEUTROPHILS # (AUTO) 5.4 X10'3 (1.8-7.7); NEUTROPHILS % (AUTO) 65.6 % (42-75); PLATELET COUNT 326 X10'3 (140-440); RED BLOOD COUNT 4.43 X10'6 (4.70-6.10); RED CELL DISTRIBUTION WIDTH 13.2 % (11.5-14.5); WHITE BLOOD COUNT 8.3 X10'3 (4.5-11.0)
[2021-10-18 07:33] LABS: ALANINE AMINOTRANSFERASE 130 U/L (12-78); ALBUMIN 2.9 G/DL (3.4-5.0); ALBUMIN/GLOBULIN RATIO 0.8 (1.1-1.5); ALKALINE PHOSPHATASE 55 IU/L (46-116); ANION GAP 8 (8-16); ASPARTATE AMINO TRANSFERASE 40 U/L (10-37); BILIRUBIN,TOTAL 0.3 MG/DL (0.1-1.0); BLOOD UREA NITROGEN 12 MG/DL (7-18); BUN/CREATININE RATIO 10.2 (5.4-32.0); CALCIUM 8.9 MG/DL (8.5-10.1); CHLORIDE 107 MMOL/L (99-107); CREATINE KINASE 422 U/L (39-308); CREATININE 1.18 MG/DL (0.60-1.10); GLUCOSE 88 MG/DL (70-104); MAGNESIUM 2.2 MG/DL (1.5-2.4); POTASSIUM 3.9 MMOL/L (3.5-5.1); SODIUM 139 MMOL/L (135-145); TOTAL CARBON DIOXIDE 24.2 MMOL/L (24-32); TOTAL PROTEIN 6.7 G/DL (6.4-8.2); eGFR 70 ML/MIN
[2021-10-18] MEDS: heparin, porcine 5000 units/ml vial SQ SCH (08:00)
[2021-10-18] MEDS: LORazepam 1 MG tablet PO PRN (08:26)
[2021-10-18] MEDS: piperacillin/tazo 3.375gm/50ml 50 ML IV SCH (08:26)
--- NOTE | 2021-10-18 16:36 | NUR ---
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 Very firm in his convictions. Is for discharge to [facility]ate [place]. [facility] worker arrived to take patient to [place]. DC packet given to patient and report given to [facility] worker. patient DC to [place] via private car with worker in stable condition.
== END 2021-10-18 13:00 | DRG 720 ==
LOC: ER 11:55 → ED HOLD 15:55 → ORTHO 4S 10-11 19:44
PROVIDERS: ADMIT Family Medicine; ATTEND Family Medicine
DX: A41.9 Sepsis, unspecified organism (principal); N17.0 Acute kidney failure with tubular necrosis; J69.0 Pneumonitis due to inhalation of food and vomit; E87.2 Acidosis; E87.1 Hypo-osmolality and hyponatremia; Z20.822 Contact with and (suspected) exposure to COVID-19; B19.20 Unspecified viral hepatitis C without hepatic coma; E86.0 Dehydration; T43.621A Poisoning by amphetamines, accidental (unintentional), initial encounter; F29 Unspecified psychosis not due to a substance or known physiological condition; G89.29 Other chronic pain; E87.6 Hypokalemia; M54.9 Dorsalgia, unspecified; F15.20 Other stimulant dependence, uncomplicated; F43.0 Acute stress reaction; M62.82 Rhabdomyolysis; N39.0 Urinary tract infection, site not specified; Z59.00 Homelessness unspecified; Z72.0 Tobacco use; Z71.51 Drug abuse counseling and surveillance of drug abuser; Z71.6 Tobacco abuse counseling; Y92.89 Other specified places as the place of occurrence of the external cause
CPT/HCPCS: 36415; 71045; 71250; 74176; 80053; 80202; 80305; 81001; 82374; 82550; 83605; 83735; 84100; 84132; 84145; 84443; 85007; 85025; 86703; 86705; 86706; 86709; 86803; 87040; 87081; 87088; 87340; 87635; 93306; 97116; 97161; 97530; 99291; 99292; G0378; J0696; J1644; J2060; J2543; J3370; J3490; J7030; J7070

== ENCOUNTER 2022-06-17 17:12 | Emergency (ER) | payer MEDICAID ==
[~2022-06-17] VITALS: Ht 188 cm; Wt 127.3 kg
[2022-06-17 17:37] VITALS: BP 150/86
[2022-06-17] MEDS ORDERED: normal saline 1000ML IV soln IV ONE (17:45)
[2022-06-17] MEDS ORDERED: CefTRIAXone 2gm/D5W 50ml BAG 50 ML IV ONE (17:45)
[2022-06-17] MEDS ORDERED: vancomycin/NS 1 GM ADD-VANTAGE 250 ML IV ONE (17:45)
[2022-06-17] MEDS ORDERED: iohexol 300mg/ml 100ml inj. ONE (18:07)
[2022-06-17] MEDS ORDERED: ketorolac trometh. 30mg/ml inj. IV ONE (18:10)
[2022-06-17] MEDS ORDERED: acetaminophen 325mg tablet PO ONE (18:10)
[2022-06-17 18:28] LABS: BASOPHILS # (AUTO) 0.1 X10'3 (0-0.2); BASOPHILS % (AUTO) 0.5 % (0-1); EOSINOPHILS # (AUTO) 0.1 X10'3 (0-0.9); EOSINOPHILS % (AUTO) 0.5 % (0-6); HEMATOCRIT 33.3 % (42.0-52.0); HEMOGLOBIN 10.9 g/dl (14.0-17.9); LYMPHOCYTES # (AUTO) 1.9 X10'3 (1.1-4.8); LYMPHOCYTES % (AUTO) 12.6 % (21-51); MEAN CORPUSCULAR HEMOGLOBIN 29.4 PG (27.0-31.0); MEAN CORPUSCULAR HGB CONC 32.8 g/dL (33.0-36.5); MEAN CORPUSCULAR VOLUME 89.7 FL (78-98); MEAN PLATELET VOLUME 9.6 FL (7.4-10.4); MONOCYTES % (AUTO) 6.6 % (2-12); NEUTROPHILS # (AUTO) 11.8 X10'3 (1.8-7.7); NEUTROPHILS % (AUTO) 79.8 % (42-75); PLATELET COUNT 309 X10'3 (140-440); RED BLOOD COUNT 3.71 X10'6 (4.70-6.10); RED CELL DISTRIBUTION WIDTH 13.5 % (11.5-14.5); WHITE BLOOD COUNT 14.8 X10'3 (4.5-11.0)
--- NOTE | 2022-06-17 18:31 | NUR ---
pt refused medication and lab draw. pt stated im not doing anything untill i get somethign thats going to work
--- NOTE | 2022-06-17 18:34 | NUR ---
Patient refused Tylenol. Patient states, "I don't want Tylenol, I am in real pain. I want to talk to the doctor." Doctor in room with another patient.
--- NOTE | 2022-06-17 18:34 | NUR ---
Patient endorsed to Nic LEHMAN
--- NOTE | 2022-06-17 18:40 | NUR ---
pt pulled own iv and attempted to leave the er bleeding all over the er floor. pt intercepted befor exiting the dept by p-medic and applied a dressing to bleeding iv site. bleeding controled and pt proceded to leave the er. pt refused to sign ama form. informed . pt left the building
[2022-06-17 18:43] LABS: ALANINE AMINOTRANSFERASE 107 U/L (12-78); ALBUMIN 2.2 G/DL (3.4-5.0); ALBUMIN/GLOBULIN RATIO 0.4 (1.1-1.5); ALKALINE PHOSPHATASE 114 IU/L (46-116); ANION GAP 8 (8-16); ASPARTATE AMINO TRANSFERASE 82 U/L (10-37); BILIRUBIN,TOTAL 0.3 MG/DL (0.1-1.0); BLOOD UREA NITROGEN 11 MG/DL (7-18); BUN/CREATININE RATIO 10.9 (5.4-32.0); CALCIUM 8.5 MG/DL (8.5-10.1); CHLORIDE 99 MMOL/L (99-107); CREATININE 1.01 MG/DL (0.60-1.10); GLUCOSE 100 MG/DL (70-104); MAGNESIUM 2.3 MG/DL (1.5-2.4); SODIUM 132 MMOL/L (135-145); TOTAL CARBON DIOXIDE 25.2 MMOL/L (24-32); TOTAL PROTEIN 7.7 G/DL (6.4-8.2); eGFR 84 ML/MIN
== END 2022-06-17 18:51 | disposition left against medical advice (07) ==
LOC: ER 17:13
DX: L03.115 Cellulitis of right lower limb (principal); G89.29 Other chronic pain; M54.50 Low back pain, unspecified; F15.20 Other stimulant dependence, uncomplicated; Z59.00 Homelessness unspecified
CPT/HCPCS: 36415; 71045; 73701; 80053; 83605; 83735; 84145; 85025; 87040; 96365; 99285; J0696; J3490; J7030; Q9967

== ENCOUNTER 2023-01-25 12:25 | Emergency (ER) | payer MEDICAID ==
[~2023-01-25] VITALS: Ht 185.4 cm; Wt 95.5 kg
[~2023-01-25 12:25] MED LIST: CEPH-585 PO; NALO4SPR BOTHNARES
[2023-01-25 13:04] VITALS: TEMP 96.7
--- NOTE | 2023-01-25 14:30 | NUR ---
PT DISROBED AND CHANGED INTO GOWN. IVMFS INITIATED. PT STILL AGITATED AND HAVING INVOLUNTARY JERKS, BUT COOPERATIVE.
[2023-01-25] MEDS ORDERED: normal saline 1000ML IV soln IVB ONE (14:40)
[2023-01-25 14:44] VITALS: BP 151/99; PULSE 57; RESP 14; O2SAT 99
[2023-01-25 14:57] LABS: BASOPHILS # (AUTO) 0.1 X10'3 (0-0.2); BASOPHILS % (AUTO) 0.4 % (0-1); EOSINOPHILS % (AUTO) 0.3 % (0-6); HEMATOCRIT 42.5 % (42.0-52.0); HEMOGLOBIN 14.5 g/dl (14.0-17.9); LYMPHOCYTES # (AUTO) 2.1 X10'3 (1.1-4.8); LYMPHOCYTES % (AUTO) 18.4 % (21-51); MEAN CORPUSCULAR HGB CONC 34.2 g/dL (33.0-36.5); MEAN CORPUSCULAR VOLUME 87.8 FL (78-98); MEAN PLATELET VOLUME 8.5 FL (7.4-10.4); MONOCYTES # (AUTO) 0.6 X10'3 (0-0.9); MONOCYTES % (AUTO) 5.5 % (2-12); NEUTROPHILS # (AUTO) 8.6 X10'3 (1.8-7.7); NEUTROPHILS % (AUTO) 75.4 % (42-75); PLATELET COUNT 288 X10'3 (140-440); RED BLOOD COUNT 4.85 X10'6 (4.70-6.10); RED CELL DISTRIBUTION WIDTH 13.4 % (11.5-14.5); WHITE BLOOD COUNT 11.5 X10'3 (4.5-11.0)
[2023-01-25 15:10] LABS: ALANINE AMINOTRANSFERASE 42 U/L (12-78); ALBUMIN 3.3 G/DL (3.4-5.0); ALBUMIN/GLOBULIN RATIO 0.8 (1.1-1.5); ALKALINE PHOSPHATASE 90 IU/L (46-116); ANION GAP 4 (8-16); ASPARTATE AMINO TRANSFERASE 45 U/L (10-37); BILIRUBIN,TOTAL 0.5 MG/DL (0.1-1.0); BLOOD UREA NITROGEN 20 MG/DL (7-18); CALCIUM 8.9 MG/DL (8.5-10.1); CHLORIDE 102 MMOL/L (99-107); ETHANOL < 10 MG/DL (<10); GLUCOSE 88 MG/DL (70-104); POTASSIUM 3.6 MMOL/L (3.5-5.1); SODIUM 136 MMOL/L (135-145); TOTAL CARBON DIOXIDE 30.1 MMOL/L (24-32); TOTAL PROTEIN 7.4 G/DL (6.4-8.2); eCRCL 114 ML/MIN; eGFR 84 ML/MIN
[2023-01-25 18:52] LABS: URINE AMPHETAMINE SCREEN POSITIVE (Neg); URINE BARBITUATE SCREEN NEGATIVE (Neg); URINE BENZODIAZEPINES SCREEN POSITIVE (Neg); URINE CANNABINOID SCREEN POSITIVE (Neg); URINE COCAINE SCREEN NEGATIVE (Neg); URINE METHADONE SCREEN NEGATIVE (Neg); URINE OPIATE SCREEN NEGATIVE (Neg); URINE PHENCYCLIDINE SCREEN NEGATIVE (Neg)
--- NOTE | 2023-01-25 19:01 | NUR ---
HE IS NOT GETTING UP TO GO ON HIS GAIT TEST. HE IS PISSED THAT HE GOT AWOKEN, SECURITY CALLED. HE DOESN'T WANT HIS IV OUT. SAID HE IS GOING TO ASSISTED. SECURITY SUMMONED TO BEDSIDE AND MD AWARE OF WHOLE SITUATION.
== END 2023-01-25 21:15 ==
LOC: ER 12:25
DX: F19.10 Other psychoactive substance abuse, uncomplicated (principal); F17.200 Nicotine dependence, unspecified, uncomplicated; F12.10 Cannabis abuse, uncomplicated; F15.10 Other stimulant abuse, uncomplicated; G89.29 Other chronic pain; M54.9 Dorsalgia, unspecified; F20.9 Schizophrenia, unspecified
CPT/HCPCS: 36415; 80053; 80305; 80320; 85025; 93005; 96360; 96361; 99284; J7030; C1758

== ENCOUNTER 2025-01-29 21:04 | Inpatient (IN) | payer MEDICAID ==
[~2025-01-29] VITALS: Ht 188 cm; Wt 139.5 kg
[~2025-01-29 21:04] MED LIST changes: +BUPR1FIL3 SL; -CEPH-585 PO; +HYDR-3686 PO; -NALO4SPR BOTHNARES; +NICO-687 TD; +NICO-907 BC; +NO HOME MEDS; +PALI3TAB5 PO; +TRAZ-256 PO; +TRIA15CR61 TP
--- NOTE | 2025-01-29 21:39 | ELECTROCARDIOGRAPH REPORT ---
[facility] Test Date: 2025-01-29 Test Time: 21:36:13 Pat Name: MARNIE SANCHEZ Department: EMERGENCY ROOM Room: [place] [address] Gender: M Systems Librarian: JAMISON : 1985 Requested By: DEWAYNE MARCELO Order Number: [id number] Reading MD: Dr. Babatunde Hanson Measurements Intervals [place] Rate: 102 P: 48 KS: 144 QRS: 29 QRSD: 98 T: 40 QT: 331 QTc: 432 Interpretive Statements Sinus tachycardia Probable left atrial enlargement RSR' in V1 or V2, right VCD or RVH ST elev, probable normal early repol pattern Electronically Signed On 02-02-2025 19:21:[address] Babatunde Hanson Please click the below link to view image of tracing.
[2025-01-29] MEDS: dexamethasone sod phosphate 10mg/ml inj IV STA (21:49)
--- NOTE | 2025-01-29 21:50 | Physician Documentation ---
History of Present Illness ~ Chief Complaint: Difficulty Breathing Stated Complaint: COVID EXPOSURE/SYMPTOMS Time Seen by MD: 21:36 Primary Medical Doctor: unknown MD, Chart reviewed for medical record HPI This is a 39-year-old male with a only past medical history of arthritis and feel right shoulder, comes in for evaluation of shortness a breath. He states that his roommate was positive for COVID. For the last day or so the gentleman has been experiencing significant shortness a breath that is both exertional and positional. He states with a his laying down flat he feels like his being suffocated. He reports chest pressure that also gets worse with the position changes in the exertion. Palliated by rest. Did not attempt to treat it. Does not have history of asthma. This has not ever happened in the past. Denies any nausea, vomiting, abdominal pain. 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 Medication Reconciliation Allergies: Coded Allergies: No Known Allergies (Unverified , 04/06/23) Scheduled Buprenorphine Hcl/Naloxone Hcl (Suboxone 8 Mg-2 Mg Sl Film), 1 FILM SL TID@0800,1400,2000 Nicotine 21 MG Patch* (Habitrol 21 MG Patch*), 1 PATCH TD DAILY Paliperidone (Paliperidone ER), 9 MG PO HS Trazodone HCl (Trazodone HCl), 1 TAB PO HS Triamcinolone Acetonide 0.5% Crm* (Kenalog 0.5% Crm*), 1 APPLIC TP BID Scheduled PRN Hydroxyzine Hcl* (Atarax*), 50 MG PO TID PRN for anxiety Nicotine Polacrilex (Nicotine Lozenge), 2 MG BC Q2H PRN for NICOTINE CRAVING Miscellaneous Medications Home Med List (No Home Medications), (Reported) Past Medical History Past Medical History: Chronic Back Pain, Schizophrenia Past Surgical History: orthopedic surgeries Patient History: FH: mental illness MOTHER Alcohol Use: Occasionally Drug Use: marijuana, methamphetamine, heroin, other Lives In: Homeless Review of Systems ROS 10 point review of systems was performed and unless noted above in HPI is negative for acute process/complaint. Physical Exam Vital Signs: Temperature: 98.2, Source: Oral, Heart Rate: 88, Respiratory Rate: 18, BP: 142/99, Pulse Oximetry: 93, Weight: 139.540 Oxygen Flow Rate: 0 Physical Exam GENERAL: Awake, alert, oriented, GCS 15, no apparent distress, non-toxic appearing, answers questions, follows commands appropriately. Examined in bed 3. HEENT: Atraumatic, normocephalic, pupils equal, extraocular muscles intact, sclerae anicteric, mucus membranes moist, oropharynx is clear, no stridor. NECK: supple, full active range of motion, trachea midline, no thyromegaly, no lymphadenopathy, no JVD. CARDIOVASCULAR: regular rate/rhythm, no murmurs/gallops/rubs, Pulses are 2+ in all extremities and symmetric. Capillary refill less than 2 seconds. PULMONARY: Tachypneic and labored, decreased air movement , mild respiratory distress, speaking in short sentences, bilateral wheezing, no ronchi, no rales, some accessory muscle use. GASTROINTESTINAL: Soft, non-tender, non-distended, normal active bowel sounds, no organomegaly, no pulsatile masses, no CVA tenderness. NEUROLOGIC: Lucid with normal mental status. Normal facial symmetry. Moves all extremities symmetrically and with purpose. No truncal ataxia. Speech is fluid without evidence of dysarthria or aphasia, no focal deficits appreciated. MUSCULOSKELETAL: There is full range of motion of all extremities. There is no joint pain or joint swelling or joint erythema. There is no muscle pain or tend erness or swelling. EXTREMITIES: warm, well-perfused, no cyanosis, no clubbing, no edema, no acute deformities. Skin: warm, dry, no rashes or lesions, no jaundice, no petechiae orpurpura. No ecchymosis. PSYCHIATRIC: Normal affect, normal insight, normal concentration. Focused exam: [] Progress Results/Orders Results/Orders Orders - RILEY MARCELO DO Culture Blood (01/29/25 21:33) Chest,Single View (01/29/25 21:33) Monitor (01/29/25 21:33) Oxygen (01/29/25 21:33) Saline Lock (01/29/25 21:33) Covid19 Binax Poc Result Entry (01/29/25 21:36) * Rt Notification Q1H (01/29/25 21:36) Completed Orders - RILEY MARCELO DO Cbc/Diff (01/29/25 21:33) Chest,Single View (01/29/25 21:33) Procalcitonin (01/29/25 21:33) Lacticsepsis (01/29/25 21:33) Electrocardiogram (01/29/25 21:36) MG (01/29/25 21:36) CMP (01/29/25 21:36) Hs Troponin I W Calculations (01/29/25 21:36) Hs Troponin I W Calculations (01/29/25 23:36) Albuterol 2.5mg/3ml Nebule (Proventil 2. (01/29/25 21:40) Dexamethasone Inj (Decadron 10mg/Ml Inj) (01/29/25 21:36) PBNP (01/29/25 21:46) Ua W/Microscopic, Cult If Ind (01/29/25 23:25) Medications Received in ER Medications (Trade) Dose Ordered Sig/Roshni Route PRN Reason Start Time Stop Time Status Last Admin Dose Admin (Proventil 2.5 MG/3ML nebule) 10 mg ONCE ONCE NEB 01/29/25 21:40 01/29/25 21:41 DC 01/29/25 22:20 10 MG (Decadron 10mg/ ml inj) 10 mg ONCE STAT IV 01/29/25 21:36 01/29/25 21:39 DC 01/29/25 21:49 10 MG Vital Signs 01/29/25 01/29/25 01/29/25 01/29/25 21:25 21:44 22:25 22:25 Temp 98.2 98.2 Pulse 106 88 87 Resp 26 18 16 B/P (MAP) 167/95 142/99 (113) Pulse Ox 83 93 95 O2 Flow Rate 0 0 8.0 01/29/25 01/29/25 01/30/25 01/30/25 23:11 23:31 00:20 01:35 Temp 98.2 98.2 Pulse 88 97 97 Resp 18 18 18 B/P (MAP) 142/99 (113) 158/89 (112) Pulse Ox 93 91 91 O2 Flow Rate 0 0 Laboratory Tests Test 01/29/25 21:35 01/29/25 21:46 01/29/25 23:25 01/29/25 23:28 SARS-CoV-2 Antigen (Rapid) Negative White Blood Count 10.6 Red Blood Count 5.15 Hemoglobin 15.4 Hematocrit 46.8 Mean Corpuscular Volume 90.8 Mean Corpuscular Hemoglobin 29.9 Mean Corpuscular Hemoglobin Concent 32.9 L Red Cell Distribution Width 14.5 Platelet Count 199 Mean Platelet Volume 9.7 Neutrophils (%) (Auto) 68.2 Lymphocytes (%) (Auto) 23.0 Monocytes (%) (Auto) 6.7 Eosinophils (%) (Auto) 1.5 Basophils (%) (Auto) 0.6 Neutrophils # (Auto) 7.3 Lymphocytes # (Auto) 2.4 Monocytes # (Auto) 0.7 Eosinophils # (Auto) 0.2 Basophils # (Auto) 0.1 CBC Comment Sodium Level 146 H Potassium Level 4.1 Chloride Level 104 Carbon Dioxide Level 36.4 H Anion Gap 6 L Blood Urea Nitrogen 9 Creatinine 1.09 Estimated GFR/1.73 m2 75 BUN/Creatinine Ratio 8.3 L Glucose Level 193 H Calcium Level 9.1 Magnesium Level 1.9 Total Bilirubin 0.3 Aspartate Amino Transf (AST/SGOT) 30 Alanine Aminotransferase (ALT/SGPT) 62 Alkaline Phosphatase 87 Troponin I High Sensitivity 31 26 Pro-B-Type Natriuretic Peptide 98 Total Protein 7.4 Albumin 3.8 Globulin 3.6 Albumin/Globulin Ratio 1.1 Procalcitonin < 0.05 Chemistry Comments Urine Specimen Description Cln catch midstream Urine Color Yellow Urine Clarity Clear Urine pH 6.0 Urine Specific [place] 1.010 Urine Protein Negative Urine Glucose (UA) Negative Urine Ketones Negative Urine Occult Blood Trace-intact Urine Nitrite Negative Urine Bilirubin Negative Urine Urobilinogen 1.0 Urine Leukocyte Esterase Negative Urine RBC 3-10 Urine WBC None seen Urine Squamous Epithelial Cells None seen Urine Bacteria None seen Urine Culture Indicated Not ind Volume Urine Centrifuged 10 ml Urine Comment Lactic Acid Level 0.8 Troponin I High Sens Percent Delta 16 Troponin I Hi Sens Absolute Change -5 Microbiology Date/Time Source Procedure Growth Status 01/29/25 21:46 Blood A/C Right Blood Culture - Preliminary NEGATIVE (LESS THAN 24 HOURS) Resulted EKG/XRAY/CT/US/VASC/MRI EKG : Additional Comment EKG was obtained and interpreted by myself shows sinus tachycardic, rate of 102, normal WI interval, narrow QRS, no QT prolongation, normal axis, no STEMI Medical Decision Making Findings Facility Status: ED Holds, [facility] process The plan was discussed with the patient, who demonstrates clear understanding of the plan and is in agreement with the plan unless otherwise noted in the chart. All questions have been answered, all concerns were addressed unless otherwise documented. I was available throughout their ED stay for frequent reassessment and questions. Differential Diagnoses (considered and possible or likely): [COVID, influenza, RSV, upper respiratory infection with the top of the viruses, bacterial pneumonia, acute respiratory failure including hypoxia, less likely CHF, less likely ACS, unlikely PE] ??Differential Diagnoses (considered and unlikely, not requiring evaluation currently): [Unlikely pneumothorax as there was no trauma, and he has a bilateral breath sounds] MDM Data Please see [facility] for the following: Independent Historians and external Records Review. Historian: [Patient] Independent Historians: ?[None] Medication Management: [Reviewed medication list] Social History and determinants: [Reviewed] Please see the body of the note for the following: Any independent interpretations of ECG, imaging studies. All vitals signs/haemodynamics, ordered tests were independently reviewed and interpreted by myself. Nursing triage complaint and vitals reviewed, additional nursing notes were reviewed as available and I agree unless otherwise noted or documented in contradiction in the chart Vital Signs: Independently reviewed Labs: Independently interpreted Imaging: Independently interpreted Old Medical Records: Independently reviewed, see [facility] for relevant summary and information Pulse Oximetry: [83% on room air] interpreted as [acute hypoxic respiratory failure] by me [Bag Sorter: [Regular Rate, Regular rhythm, no ectopy, NSR] reviewed and interpreted by me] Additionally notably showing: [Hemodynamics reviewed. Initially hypoxic, improves on supplemental oxygen. No evidence of hives hypotension respiratory distress once on supplemental oxygen. Laboratory studies showed no leukocytosis, no neutrophilic predominance. Chemistry shows elevated glucose consistent with diabetes. Procalcitonin is normal. Troponins are normal. BNP is normal. UA nondiagnostic for UTI. COVID is negative. Chest x-ray was obtained showing interstitial edema but no focal consolidation.] Tests considered but not ordered include: [Without explanation for his symptoms, CTA was ordered, pending at the time of admission.] Social Determinants of Health Impact: Patient was evaluated in [facility] [place] access to healthcare due to below par ratio of patient to medical providers. [] Comorbid Conditions Impacting Present Evaluation and Care/Treatment: [None] Management Discussions with other Healthcare Providers: [Hospitalist regarding admission] Treatment and Disposition Medication Management (Given or considered): []. See EMR for details Consideration for Hospitalization/Escalation/Deescalation of Care: Admission for observation has been considered, and appears to be necessary for further management of his acute hypoxic respiratory failure. ?ED Course:?[No clinical improvement or deterioration.] ?Shared decision making:?[] Code status:?FULL Please see the full Electronic Medical Record for full details of nursing documentation, medications list, other records of complete past medical history and conditions, vital signs, laboratory studies, and any radiologic study interpretations by radiologists. Portions of this note were completed using [employer] dictation software and as a result there may exist minor errors in spelling. I have reviewed elements of past family and social history and agree as included in note. Departure Disposition: 09 ADMITTED INPATIENT Impression: Primary Impression: Acute hypoxic respiratory failure Condition: Stable Referrals: NO PRIMARY CARE PROVIDER (PCP) Signature Scribe Signature: No scribe Attestation: Date: Jan 29, 2025 Time: 21:49 This note accurately reflects clinical decisions, work performed by myself, Riley Marcelo, RILEY LAMAS DO Jan 29, 2025 21:50
[2025-01-29 22:10] LABS: MEAN PLATELET VOLUME 9.7 FL (7.4-10.4); RED CELL DISTRIBUTION WIDTH 14.5 % (11.5-14.5)
--- NOTE | 2025-01-29 22:19 | RADIOLOGY REPORT ---
CHEST RADIOGRAPH Indication: TACHYPNEA, TACHYARDIA Technique: 1 view Comparison: DI CHEST,SINGLE VIEW on DOS: 04/23/23, DI CHEST,SINGLE VIEW on DOS: 04/06/23, CHEST,SINGLE VIEW on DOS: 06/17/22, CHEST,SINGLE VIEW on DOS: 10/10/21 FINDINGS: Lines and Tubes: None Lungs/Pleura: Low lung volumes with perihilar interstitial opacities. No evidence of focal consolidation or pleural abnormality. Cardiomediastinum: Unremarkable. Other: No acute osseous abnormality. IMPRESSION: 1. Low lung volumes with interstitial opacities suggesting edema or atypical infection.
[2025-01-29] MEDS: albuterol 2.5 MG/3 ML nebule NEB ONE (22:20)
[2025-01-29 22:25] VITALS: PULSE 87; RESP 16; O2SAT 95
[2025-01-29 23:03] LABS: CREATININE 1.09 MG/DL (0.60-1.10); TOTAL CARBON DIOXIDE 36.4 MMOL/L (24-32); eCRCL 106 ML/MIN; eGFR 75 ML/MIN
[2025-01-29 23:11] VITALS: PULSE 88; RESP 18; O2SAT 93
[2025-01-29 23:23] LABS: PRO BRAIN NATRIURETIC PEPTIDE 98 PG/ML (0-125)
[2025-01-29 23:48] LABS: LEUKOCYTE ESTERASE ,URINE NEGATIVE (Neg); NITRITES, URINE NEGATIVE (Neg); OCCULT BLOOD,URINE TRACE-INTACT (Neg)
[2025-01-29 23:52] LABS: UA COLLECTION TYPE CLN CATCH MIDSTREAM
[2025-01-29 23:56] LABS: SQUAMOUS EPITHELIAL CELL,UR NONE SEEN /LPF (FEW)
[2025-01-30] VITALS (17 sets, daily range): BP systolic 121–154; BP diastolic 77–90; PULSE 78–108; RESP 12–28; TEMP 96.7–98.2; O2SAT 87–98
[2025-01-30] MEDS ORDERED: potassium Cl 40MEQ/1/2NS 520ml 520 ML IV PRN (02:40)
[2025-01-30] MEDS ORDERED: HYDROcodone/acetaminophen 5mg/325mg tablet PO PRN (02:40)
[2025-01-30] MEDS ORDERED: potassium Cl 20 mEq SR tablet PO PRN ×2 (02:40)
[2025-01-30] MEDS ORDERED: magnesium Cl slow-release 64mg tablet PO PRN (02:40)
[2025-01-30] MEDS ORDERED: magnesium hydroxide 30ml (MOM) UD suspension PO PRN (02:40)
[2025-01-30] MEDS ORDERED: magnesium sulf-water 4G/100mL 100 ML IV PRN (02:40)
[2025-01-30] MEDS ORDERED: magnesium sulf-water 2g/50mL 50 ML IV PRN (02:40)
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
--- NOTE | 2025-01-30 03:58 | RADIOLOGY REPORT ---
CTA Chest with intravenous contrast INDICATION: Shortness a breath, hypoxia COMPARISON: CT chest 10/10/2021 TECHNIQUE: Multidetector spiral CTA of the chest was performed of the chest with intravenous contrast. PULMONARY ANGIOGRAPHY PROTOCOL was utilized using a bolus- tracking technique centered on the main pulmonary artery. Axial, coronal and sagittal multiplanar and MIP reformats were performed. Radiation Dose : 1. Chest: CTDI volume is 25 mGy. Dose-length product is 12 11 mGy*cm The dose indicators for CT are the volume Computed Tomography (CT) Dose Index (CTDIvol) and the Dose Length Product (DLP), and are measured in units of mGy and mGy-cm, respectively. These indicators are not patient dose, but values generated from the CT scanner acquisition factors. The report includes radiation exposure data for exposures received during this examination. Findings: Pulmonary arteries: Technical factors adequate for assessment of the level of the segmental arteries. No evidence of filling defect. Central arteries are normal in caliber. Lower neck: Unremarkable. Lungs: Patchy consolidation within the right mid to lower lung. Mild scattered atelectasis in both lungs. Pleura: Normal. Heart/Vascular Structures: Normal heart size. No pericardial effusion. Lymph Nodes: No adenopathy Musculoskeletal: No acute findings. Mild degenerative changes of the spine and shoulders. Soft tissues: Elevated right hemidiaphragm. Upper abdomen: No acute findings. Probable hepatic steatosis. IMPRESSION: 1. No pulmonary embolism to the level of the segmental arteries. 2. Consolidative atelectasis in the right lung base may contain a component of infection or aspiration, or may be secondary to chronic right hemidiaphragm elevation.
[2025-01-30] MEDS ORDERED: [UNRECOGNIZED DRUG - CODE] PO (04:29)
[2025-01-30] MEDS ORDERED: RIFA300C65 PO (04:29)
[2025-01-30] MEDS ORDERED: PYRI-3 PO (04:29)
[2025-01-30] MEDS: furosemide 10 MG/1 ML 10ml inj IV ONE (04:34)
[2025-01-30 05:26] LABS: ABG BASE EXCESS 7.9 mmol/L (-2.0-3.0); ABG HCO3 39.3 mmol/L (21.0-28.0); ABG OXYGEN SATURATION 92.8 % (94.0-98.0); ABG PCO2 (T) 84.1 mmHg (35.0-48.0); ABG PH (T) 7.286 (7.350-7.450); ABG PO2 (T) 67.9 mmHg (83.0-108.0); ALLEN'S TEST POSITIVE; FCOHb 3.1 % (0.5-1.5); FHHb 7.0 % (0.0-5.0); FIO2 36.0 mmHg/%; FLOW 4 L/min; FMetHb 0.1 % (0.0-1.5); FO2Hb 89.8 % (94.0-98.0); MODE NASAL CANNULA; PATIENT TEMPERATURE 36.7; TOTAL HEMOGLOBIN 17.9 G/dl (13.5-17.5)
[2025-01-30] MEDS: ipratropium/albuterol 3ml nebule NEB SCH (07:22)
[2025-01-30] MEDS: K and/or MAG REPLACEMENT MC SCH (08:00)
[2025-01-30] MEDS ORDERED: albuterol 2.5 MG/3 ML nebule NEB PRN (08:25)
[2025-01-30 09:08] LABS: MEAN PLATELET VOLUME 10.1 FL (7.4-10.4); RED CELL DISTRIBUTION WIDTH 14.6 % (11.5-14.5)
[2025-01-30 09:32] LABS: CHOL/HDL RATIO 2.9 (0.00-4.99); CREATININE 0.73 MG/DL (0.60-1.10); LDL CHOLESTEROL 113 MG/DL (50-100); TOTAL CARBON DIOXIDE 39.0 MMOL/L (24-32); eCRCL 158 ML/MIN; eGFR > 90 ML/MIN
[2025-01-30] MEDS: nicotine 21mg patch - 24 hr TD SCH (09:41)
[2025-01-30] MEDS: docusate sod 100mg capsule PO SCH (09:45)
[2025-01-30] MEDS: CefTRIAXone/D5W-Rocephin 1gm 50 ML IV SCH (09:46)
[2025-01-30] MEDS: mag hydrox/Alum hydrox/simeth 30ml oral suspension PO PRN (12:15)
[2025-01-30] MEDS: ondansetron/PF 4mg/2ml inj IV PRN (12:15)
[2025-01-30] MEDS: HYDROcodone/acetaminophen 10/325mg tab PO PRN (12:16)
[2025-01-30 13:07] LABS: URINE AMPHETAMINE SCREEN NEGATIVE (Neg); URINE BARBITUATE SCREEN NEGATIVE (Neg); URINE BENZODIAZEPINES SCREEN NEGATIVE (Neg); URINE CANNABINOID SCREEN NEGATIVE (Neg); URINE COCAINE SCREEN NEGATIVE (Neg); URINE METHADONE SCREEN NEGATIVE (Neg); URINE OPIATE SCREEN NEGATIVE (Neg); URINE PHENCYCLIDINE SCREEN NEGATIVE (Neg)
[2025-01-30] MEDS: PERFLUTREN PROTEIN-A MICROSPHR (Optison) 0.22 MG/ML 3ML VIAL IV ONE (14:15)
--- NOTE | 2025-01-30 14:34 | RADIOLOGY REPORT ---
ULTRASOUND ABDOMEN, LIMITED RIGHT UPPER QUADRANT: REASON FOR EXAM: liver ultrasound. Enlarged liver with elevated frank diaphragm TECHNIQUE: Real-time sector scans in the transverse and longitudinal planes were obtained through the right upper quadrant of the abdomen. FINDINGS: Examination was technically difficult due to patient body habitus. The liver is enlarged at 19.9 cm in length. The liver is diffusely echogenic.. There is no intrahepatic nor extrahepatic biliary ductal dilatation. The common bile duct is not seen. The gallbladder is not seen. The pancreas is obscured by bowel gas. The right kidney is not seen. The aorta and IVC are not seen. No free fluid is identified in the right upper quadrant within the limitations of this study. IMPRESSION: Limited study due to patient body habitus. Hepatomegaly. The liver is diffusely echogenic which may be secondary to steatosis or another diffuse hepatic process. Correlate clinically and with liver function tests.
[2025-01-30] MEDS: VANCOMYCIN 2GM/400ML H20 (PEG) 400 ML IV ONE (15:34)
[2025-01-30] MEDS: azithromycin/NS 500mg/250ml 250 ML IV SCH (15:34)
[2025-01-30 15:40] LABS: APTT 23 SECONDS (22-32); INR 1.1 INR
[2025-01-30] MEDS ORDERED: DIVA-36 PO (17:05)
[2025-01-30] MEDS ORDERED: OLAN15TA97 (17:05)
[2025-01-30] MEDS ORDERED: LITH300C PO (17:13)
[2025-01-30 17:32] LABS: ABG BASE EXCESS -0.7 mmol/L (-2.0-3.0); ABG HCO3 24.6 mmol/L (21.0-28.0); ABG OXYGEN SATURATION 80.1 % (94.0-98.0); ABG PCO2 (T) 42.4 mmHg (35.0-48.0); ABG PH (T) 7.379 (7.350-7.450); ABG PO2 (T) 39.5 mmHg (83.0-108.0); ALLEN'S TEST POSITIVE; FCOHb 2.4 % (0.5-1.5); FHHb 19.4 % (0.0-5.0); FIO2 21.0 mmHg/%; FMetHb 0.3 % (0.0-1.5); FO2Hb 77.9 % (94.0-98.0); PATIENT TEMPERATURE 36.7; TOTAL HEMOGLOBIN 13.1 G/dl (13.5-17.5)
--- NOTE | 2025-01-30 18:25 | CARDIOLOGY REPORT ---
APPROVED REPORT EXAM: Comprehensive 2D, Doppler, and color-flow Echocardiogram. 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 2.91 cm CO 6.9 L/min M-Mode Dimensions RVDd 2.84 (2.1-3.2cm) Left Atrium(MM) 4.08 (2.5-4.0cm) IVSd 1.26 (0.7-1.1cm) LVDd 4.90 (4.0-5.6cm) Aortic Root 3.31 (2.2-3.7cm) PWd 1.23 (0.7-1.1cm) Aortic Cusp Exc 1.91 (1.5-2.0cm) IVSs 1.52 cm MV EPSS 0.6 (<0.5cm) LVDs 3.00 (2.0-3.8cm) FS (%) 39 % PWs 1.52 cm ESV(Teich) 27.7 ml LVEF(%) 70 (>50%) Aortic Valve AoV Peak George. 166.1 cm/s AoV VTI 26.8 cm AO Peak GR. 11.0 mmHg AO Mean GR. 6 mmHg LVOT VTI 24.90 cm LVOT Peak George. 127.1 cm/s LAKEISHA(VTI)/BSA 3.41 cm2/m2 LAKEISHA (VTI) 3.41 cm2 Mitral Valve MV E Velocity 63.9 cm/s MV Peak Gr. 4 mmHg MV DECEL TIME 128 ms MV A Velocity 86.7 cm/s MV Mean Gr. 2 mmHg E/A Ratio 0.7 MV VMax 100.0 cm/s MV VMean 68.0 cm/s MVA VTI 4.80 cm2 MV VTI 19.0 cm Tricuspid Valve TR P. Velocity 298 cm/s RAP ESTIMATE 10 mmHg TR Peak Gr. 36 mmHg RVSP 46 mmHg Pulmonary Vein S1 Velocity 40.9 cm/s D2 Velocity 36.8 cm/s PVa Velocity 42.8 cm/s PVa Duration 196 msec LEFT VENTRICLE Normal LV size and function. Mild concentric hypertrophy. LVEF is 65-70%. RIGHT VENTRICLE Right ventricle is moderately dilated with normal function. Estimated PA systolic pressure is 46 mmHg. ATRIA Left atrium is moderately dilated. Right atrium is mildly dilated. AORTIC VALVE Trileaflet AV appears sclerotic without stenosis or insufficiency. MITRAL VALVE Mild MV annular thickening without stenosis. Mild regurgitation. TRICUSPID VALVE TV appears structurally normal with trace regurgitation. PULMONIC VALVE Normal PV without stenosis, physiologic insufficiency. GREAT VESSELS The aortic root is normal in size. IVC is not well visualized. PERICARDIUM Normal pericardium. No pericardial effusion seen. Other Information Study Quality: Adequate Conclusion Normal LV size and function. Mild concentric hypertrophy. LVEF is 65-70%. Right ventricle is moderately dilated with normal function. Estimated PA systolic pressure is 46 mmHg. Left atrium is moderately dilated. Right atrium is mildly dilated. Trileaflet AV appears sclerotic without stenosis or insufficiency. Mild MV annular thickening without stenosis. Mild regurgitation. TV appears structurally normal with trace regurgitation. Normal pericardium. No pericardial effusion seen.
[2025-01-30] MEDS: vancomycin/NS 1 GM ADD-VANTAGE 250 ML IV SCH (23:41)
[2025-01-31] VITALS (22 sets, daily range): BP systolic 115–141; BP diastolic 63–83; PULSE 72–103; RESP 12–22; TEMP 97.3–98.7; O2SAT 23–98
[2025-01-31 06:14] LABS: MEAN PLATELET VOLUME 9.7 FL (7.4-10.4); RED CELL DISTRIBUTION WIDTH 14.2 % (11.5-14.5)
[2025-01-31 06:46] LABS: CREATININE 0.80 MG/DL (0.60-1.10); TOTAL CARBON DIOXIDE 37.9 MMOL/L (24-32); eCRCL 144 ML/MIN; eGFR > 90 ML/MIN
--- NOTE | 2025-01-31 09:24 | VASCULAR REPORT ---
Bilateral lower extremity venous duplex Clinical History: edena Comparison: None Technique: Duplex Doppler evaluation of the deep venous systems of both lower extremities from the common femoral veins to the popliteal veins including color Doppler and spectral/pulsed waveform analysis was performed. Findings: Bilateral lower extremity edema/shortness of breath Risk Factors Obesity Vein Imaging (Right) CFV (R): Compressible, Spontaneous, Pulsatile, Augmentation Reflux: ms SFJ (R): Compressible, Spontaneous, Pulsatile, Augmentation Reflux: ms FEM (R): Compressible, Spontaneous, Pulsatile, Augmentation Reflux: ms POP (R): Compressible, Spontaneous, Pulsatile, Augmentation Reflux: ms DFV (R): Compressible, Spontaneous, Pulsatile, Augmentation Reflux: ms PTV (R): Compressible, Spontaneous, Pulsatile, Augmentation Reflux: ms GSV (R): Compressible, Spontaneous, Pulsatile, Augmentation Reflux: ms Peroneals (R): Compressible, Spontaneous, Pulsatile, Augmentation Reflux: ms Vein Imaging (Left) CFV (L): Compressible, Spontaneous, Pulsatile, Augmentation Reflux: ms SFJ (L): Compressible, Spontaneous, Pulsatile, Augmentation Reflux: ms FEM (L): Compressible, Spontaneous, Pulsatile, Augmentation Reflux: ms POP (L): Compressible, Spontaneous, Pulsatile, Augmentation Reflux: ms DFV (L): Compressible, Spontaneous, Pulsatile, Augmentation Reflux: ms PTV (L): Compressible, Spontaneous, Pulsatile, Augmentation Reflux: ms GSV (L): Compressible, Spontaneous, Pulsatile, Augmentation Reflux: ms Peroneals (L): Compressible, Spontaneous, Pulsatile, Augmentation Reflux: ms CONCLUSION No thrombus detected by image in bilateral lower extremities. All vessels interrogated were compressible and augment with distal compressions. Spontaneous, pulsatile flow is noted throughout bilateral lower extremities.
[2025-01-31 14:40] LABS: TOTAL HEMOGLOBIN 15.7 G/dl (13.5-17.5)
--- NOTE | 2025-01-31 15:13 | RADIOLOGY REPORT ---
CLINICAL HISTORY: somnolent TECHNIQUE: Helical scanning was performed of the head from the skull base to the vertex. Multiplanar reconstructions were performed. This exam was performed according to our departmental dose optimization program. Up-to-date CT equipment and radiation dose reduction techniques are utilized as appropriate. CTDI 66.6 DLP 05/21/51 COMPARISON: None FINDINGS: There is no evidence for acute intracranial hemorrhage, acute ischemic changes, mass, mass effect, or extra-axial fluid collection. There is no hydrocephalus or midline shift. There is no effacement of the cerebral sulci and basal subarachnoid cisterns. The agustin-white matter differentiation is well maintained. The imaged paranasal sinuses are clear. IMPRESSION: NO ACUTE INTRACRANIAL ABNORMALITY SEEN.
[2025-01-31] MEDS: VANCOMYCIN LEVEL IV ONE (15:30)
--- NOTE | 2025-01-31 16:21 | RADIOLOGY REPORT ---
CHEST RADIOGRAPH Indication: hypoxemia Technique: Single frontal view of the chest was obtained COMPARISON: CT CTA CHEST PE W/ IV CONTRAST on DOS: 01/30/25, DI CHEST,SINGLE VIEW on DOS: 01/29/25, DI CHEST,SINGLE VIEW on DOS: 04/23/23, DI CHEST,SINGLE VIEW on DOS: 04/06/23, CHEST,SINGLE VIEW on DOS: 06/17/22 FINDINGS: Lines and Tubes: None Lungs: Low lung volumes. Congestion. Pleura: No effusion. No pneumothorax. Cardiomediastinal contours: Cardiomegaly. Stable elevation of the right hemidiaphragm. Bones: Unremarkable IMPRESSION: Cardiomegaly and pulmonary vascular congestion. No significant interval change.
[2025-01-31 16:57] LABS: ABG BASE EXCESS 9.6 mmol/L (-2.0-3.0); ABG HCO3 38.8 mmol/L (21.0-28.0); ABG OXYGEN SATURATION 92.5 % (94.0-98.0); ABG PCO2 (T) 73.0 mmHg (35.0-48.0); ABG PH (T) 7.343 (7.350-7.450); ABG PO2 (T) 64.5 mmHg (83.0-108.0); ALLEN'S TEST POSITIVE; FCOHb 1.2 % (0.5-1.5); FHHb 7.4 % (0.0-5.0); FIO2 35.0 mmHg/%; FMetHb 0.3 % (0.0-1.5); FO2Hb 91.1 % (94.0-98.0); MODE MASK - BIPAP; PATIENT TEMPERATURE 37.0; RESPIRATORY RATE 16 b/min; TOTAL HEMOGLOBIN 15.6 G/dl (13.5-17.5)
--- NOTE | 2025-01-31 19:25 | CONSULTATION REPORT - RESIDENT ---
Consult Providers to CC Resident Creating Document: ANGELA WALKER RES History of Present Illness Reason for Admit\Complaint: Shortness of breaths History of Present Illness 39 years old patient with history of multidrug abuse, presented to the ED due to shortness of breaths. He reported the shortness of breaths started about four month ago and getting worse during last two weeks, he also reported productive cough and occasional black color sputum. Shortness of breaths was exertional and recently is even at rest, and also he reported associated orthopnea. Denied any chest pain, fever or chills. Heel lift in rehab a program for people who quit substance abuse and alcohol. He used to be homeless. Reported his roommate had positive COVID however in the ED COVID test was negative. He went to senior living in August and as is knowledge he was diagnosed with latent TB and started on rifampin and isoniazid, however due to adverse effect including muscle spasm and neuropathy he stopped taking it after two weeks. As his knowledge he did not do any skin test in the present for diagnosis of latent TB, his diagnosis is questionable. Allergies: Coded Allergies: No Known Allergies (Unverified , 04/06/23) Home Medications Home Medications Active Kenalog 0.5% Crm* (Triamcinolone Acetonide) 15 Gm Tube 1 Applic TP BID 30 Days Atarax* (Hydroxyzine HCl) 25 Mg Tablet 50 Mg PO TID PRN 30 Days Paliperidone ER (Paliperidone) 3 Mg Tab.er.24 9 Mg PO HS 30 Days Trazodone HCl 100 Mg Tablet 1 Tab PO HS 30 Days Suboxone 8 Mg-2 Mg Sl Film (Buprenorphine Hcl/Naloxone Hcl) 8 Mg-2 Mg Film 1 Film SL TID@0800,1400,2000 7 Days Nicotine Lozenge (Nicotine Polacrilex) 2 Mg Lozenge 2 Mg BC Q2H PRN 30 Days Habitrol 21 MG Patch* (Nicotine) 1 Each Patch.td24 1 Patch TD DAILY 30 Days Reported [place] Carbonate 300 Mg Capsule 1 Cap PO HS Olanzapine 15 Mg Tablet 1 Tab BID Divalproex Sodium 250 Mg Tablet.dr 1 Tab PO BID Rifampin 300 Mg Capsule 2 Cap PO DAILY Vitamin B-6 (Pyridoxine Hcl) 50 Mg Tablet 1 Tab PO DAILY ISONIAZID tablet (Isoniazid) 300 Mg Tablet 1 Tab PO DAILY No Home Medications (Home Med List) Each Past Medical History Past Medical History Hepatitis-C COPD Left side Frozen shoulder Family History Family History: FH: mental illness MOTHER, , Age: 50's - 60 Past Social History Social History Comment Smoking cigarettes daily more than 10 years, decrease the amount of smoking recently, used to smoke two pack a day Quit taking marijuana methamphetamine and crystal since two years ago Stopped drinking alcohol two years ago two months ago, stopped drinking 10-12 drinks everyday, currently he lives [facility] Homeless ROS ROS Constitutional: No fever, dizziness, weakness. no change in appetite/weight HEENT: No blurring of the vision, No sore throat, epistaxis, tinnitus Cardiovascular: no chest pain/discomfort, palpitations, no syncope. No pedal edema Respiratory: as HPI Gastrointestinal: no abdominal pain, no nausea, vomiting. no diarrhea, no constipation, melena. Genitourinary: No frquency, urgency, incontinence, nocturia. No dysuria, hematuria Musculoskeletal: No arthralgia, myalgia Endocrine: No polydipsia, polyuria. No heat or cold intolerance Neurologic: No headache, vertigo. No weakness, yes for numbness or tingling of extremities Psychiatric: No hallucinations/delusions, no anhedonia, no suicidal ideation\ Hematologic: No bleeding or bruises Exam Vitals: Vital Signs Date Time Temp Pulse Resp B/P (MAP) Pulse Ox O2 Delivery O2 Flow Rate FiO2 01/31/25 19:18 89 22 High Flow Salter 13.0 01/31/25 19:15 93 01/31/25 19:13 69 01/31/25 15:00 98.7 117/63 (81) General: General: Awake and Alert, on 15 L oxygen HEENT: Conjunctiva pink, Sclera clear, Mucus Membranes moist. Neck: Supple without masses and tenderness. Resp: Decrease breath sounds bilaterally, mild wheezing Heart: Regular Rate and rhythm, normal S1 and S2 Abdomen: Soft and non tender no organomegaly Extremities: No cyanosis,clubbing or edema. Skin: Warm and Dry. Neurological: Speech is clear, alert, and oriented x 4, no gross neurological deficits Diagnostic Data Last Recorded Lab Results: 01/31/25 0534 01/31/25 0534 Diagnostic Data: Laboratory Tests Test 01/30/25 15:13 Prothrombin Time 11.2 SECONDS (9.0-12.0) INR International Normalized Ratio 1.1 INR Activated Partial Thromboplast Time 23 SECONDS (22-32) Coagulation Comments Additional Plan 39 years old male with history of senior living in August, multisubstance abuse, possible COPD presented to the ED due to shortness of breath Community-acquired pneumonia, RLL Negative COVID in ED, we will repeat today due to exposure CTA negative for PE, consolidative atelectasis in the right lung base may contain a component of infection or aspiration Positive blood culture for Gram-positive cocci in cluster, pending the final result Reported history of latent TB however there is no clear documentation We ordered interferon gamma release assay for evaluation of TB Rifampin is a cytochrome P 450 inducer, should not be used with Suboxone If patient has latent TB, needs to be started on isoniazid for nine months; however because patient is homeless needs to be connected to primary care doctor or Infectious Disease as an outpatient to make sure patient is taking medication regularly Continue ceftriaxone and azithromycin, and also continue vancomycin until we get the final result of blood culture Consider decreasing the amount of corticosteroid Bipolar disorder/psychiatric issue As medication reconciliation patient is on valproic acid, do not start rifampin, which is a strong inducer can cause increased clearance of valproic acid Angela Walker MD Internal Medicine Resident Infectious disease consult note Agree with above note. Patient seen & examined with Dr. Walker. Need to clarify if patient has latent TB. If so, rifampin likely not a good option due to significant drug interactions with Suboxone and other psych meds. Continue treatment of CAP. Date of Service: Jan 31, 2025 Billing Provider: ANETA KIM MD, ELAHE, MILENA Jan 31, 2025 19:25 ANETA KIM MD Jan 31, 2025 21:24
--- NOTE | 2025-01-31 19:27 | PROGRESS NOTE- Residence ---
Progress Note - Resident Providers to CC Resident Creating Document: AKIRA PENA RES CC: RAJAT MASSEY MD ~ Antibiotic Timeout Antibiotic Ordered?: Yes Subjective Patient seen and examined at bedside, he said he is feeling fine denies any shortness of breath. He looks confused to me. Objective Vital Signs Date Time Temp Pulse Resp B/P (MAP) Pulse Ox O2 Delivery O2 Flow Rate FiO2 01/31/25 19:18 89 22 High Flow [place] 13.0 01/31/25 19:15 93 01/31/25 19:13 69 01/31/25 15:00 98.7 117/63 (81) Result Diagram: 01/31/25 0534 01/31/25 0534 General: Well alert, well oriented, not confused, not agitated, not in acute distress, well cooperated during the physical. HEENT: Conjunctive are pink, sclerae clear, no icterus, pupil is equal in both sides, reactive to light, no ear discharge, no pharyngeal erythema or an edema. Neck: Supple, no JVD, no lymphadenopathy and thyromegaly. Chest: Equal air entry on both lungs, occasional wheeze heard in all lung knox, no Crepts. Cardiovascular: S1-S2 regular sinus rhythm and, regular rate, no gallops, no rubs, no murmurs Abdomen: No visible peristalsis, Bowel sounds present on auscultation, soft, nontender, no guarding, no rigidity Extremities: Tremors in his hands, capillary refill intact, peripheral pulsations are intact on both sides Central Nervous System: No focal neurological deficits, no motor or sensory weakness in all 4 extremities, could move all 4 extremities, 2+ deep tendon reflexes, negative Babinski. Musculoskeletal: No joint swelling, deformities and inflammations Skin: Warm and dry. Coagulation Studies Laboratory Tests Test 01/30/25 15:13 Prothrombin Time 11.2 SECONDS (9.0-12.0) INR International Normalized Ratio 1.1 INR Activated Partial Thromboplast Time 23 SECONDS (22-32) Coagulation Comments Plan Plan This is a 39-year-old morbidly obese male with past medical history of latent tuberculosis, hepatitis C, COPD who came to the ER complaints of shortness of breaths Admitted for COPD Excerabation Plan: Acute exacerbation of COPD with hypoxic respiratory failure Superimposed on Bacterial Pneumonia Respiratory acidosis with Near Compensation Chest x-ray: 1. Low lung volumes with interstitial opacities suggesting edema or atypical infection. COVID-19 negative, repeated COVID-19 test WBCs trending upward, lactic acid 1.5, procalcitonin normal Serial troponin negative, NT proBNP 98 Preliminary blood cultures showed Gram-positive cocci, start patient on vancomycin day 1 DuoNeb 2 puffs q.4h Patient is on BiPAP maintaining oxygen sat 90-92 Repeat blood gas CTA CHEST :1. No pulmonary embolism to the level of the segmental arteries, Consolidative atelectasis in the right lung base may contain a component of infection or aspiration, or may be secondary to chronic right hemidiaphragm elevation. Echo Shows: Normal LV size and function. Mild concentric hypertrophy. LVEF is 65-70%. Right ventricle is moderately dilated with normal function. Estimated PA systolic pressure is 46 mmHg. Preliminary blood cultures showed Gram-positive cocci DuoNeb 2 puffs q.4h Patient is on BiPAP maintaining oxygen sat 90-92 Latent tuberculosis Diagnosed in retirement Dced isoniazid 300 mg p.o. daily, rifampin 300 mg p.o. daily, vitamin-B 650 mg p.o. daily. Consulted ID consulted Dr. Mo who discontinued isoniazid and rifampin recommended QuantiFERON gold, repeat COVID 19 and start suboxne and lithium. Code status: Full code DVT prophylaxis: SCDs Analgesia/sedation: Morphine/[place] p.r.n. Line/tube: PIV GI prophylaxis: None Nutrition: Regular diet PT: Ordered. Disposition: Patient is very sick please keep an close eye on patient, patient is on BiPAP. Consulted ID consulted Dr. Mo who discontinued isoniazid and rifampin recommended QuantiFERON gold, repeat COVID 19 and start suboxne and lithium. Critical Care Time: Total of 45 mininutes spent Akira Pena PGY 1 INTERNAL MEDICINER RESIDENT Date of Service: Jan 31, 2025 Billing Provider: RAJAT MASSEY MD,AKIRA, RES Jan 31, 2025 19:27
[2025-01-31] MEDS: VANCOmycin 1250MG/NS 250ml Bag 250 ML IV SCH (23:13)
[2025-01-31 23:15] LABS: ABG BASE EXCESS 11.6 mmol/L (-2.0-3.0); ABG HCO3 41.1 mmol/L (21.0-28.0); ABG OXYGEN SATURATION 94.4 % (94.0-98.0); ABG PCO2 (T) 75.5 mmHg (35.0-48.0); ABG PH (T) 7.353 (7.350-7.450); ABG PO2 (T) 70.8 mmHg (83.0-108.0); ALLEN'S TEST Modified; FCOHb 1.3 % (0.5-1.5); FHHb 5.5 % (0.0-5.0); FIO2 67.0 mmHg/%; FLOW 12 L/min; FMetHb 0.3 % (0.0-1.5); FO2Hb 92.9 % (94.0-98.0); MODE HIGH FLOW; PATIENT TEMPERATURE 36.9; TOTAL HEMOGLOBIN 15.8 G/dl (13.5-17.5)
[2025-02-01] VITALS (18 sets, daily range): BP systolic 111–152; BP diastolic 60–101; PULSE 75–106; RESP 14–24; TEMP 96.6–98.4; O2SAT 90–98
[2025-02-01 05:26] LABS: ABG PCO2 (T) 81.0 mmHg (35.0-48.0); ABG PH (T) 7.299 (7.350-7.450); ABG PO2 (T) 90.6 mmHg (83.0-108.0); ALLEN'S TEST POSITIVE; FIO2 71.0 mmHg/%; PATIENT TEMPERATURE 37.2
[2025-02-01 05:27] LABS: ABG BASE EXCESS 8.6 mmol/L (-2.0-3.0); ABG HCO3 38.8 mmol/L (21.0-28.0); ABG OXYGEN SATURATION 96.4 % (94.0-98.0); FCOHb 1.3 % (0.5-1.5); FHHb 3.5 % (0.0-5.0); FMetHb 0.3 % (0.0-1.5); FO2Hb 94.9 % (94.0-98.0)
[2025-02-01 06:08] LABS: MEAN PLATELET VOLUME 9.9 FL (7.4-10.4); RED CELL DISTRIBUTION WIDTH 13.9 % (11.5-14.5)
[2025-02-01 06:19] LABS: CREATININE 0.71 MG/DL (0.60-1.10); TOTAL CARBON DIOXIDE 36.9 MMOL/L (24-32); eCRCL 162 ML/MIN; eGFR > 90 ML/MIN
[2025-02-01] MEDS: buprenorphine/naloxone 8MG-2MG SUBlingual film SL SCH (09:10)
--- NOTE | 2025-02-01 15:29 | PROGRESS NOTE- Residence ---
Progress Note - Resident Providers to CC Resident Creating Document: ANGELA WALKER RES ~ Antibiotic Timeout Antibiotic Ordered?: Yes Subjective Patient seen and examined at the bedside, awake oriented, not in respiratory distress, on room air. Denied shortness of breath chest pain or any new symptoms Objective Vital Signs Date Time Temp Pulse Resp B/P (MAP) Pulse Ox O2 Delivery O2 Flow Rate FiO2 02/01/25 15:18 83 20 Room Air 0.0 02/01/25 15:12 93 21 02/01/25 02:00 97.7 142/76 (98) Result Diagram: 02/02/25 0536 02/02/25 0536 General: Awake and Alert, no acute distress. HEENT: Conjunctiva pink, Sclera clear, Mucus Membranes moist. Neck: Supple without masses and tenderness. Resp: Diminished breath sounds bilaterally at the bases of lung, no wheezing Heart: Regular Rate and rhythm, normal S1 and S2 Abdomen: Soft and non tender no organomegaly Extremities: No cyanosis,clubbing or edema. Skin: Warm and Dry. Neurological: Speech is clear, alert, and oriented x 4, no gross neurological deficits Coagulation Studies Laboratory Tests Test 01/30/25 15:13 Prothrombin Time 11.2 SECONDS (9.0-12.0) INR International Normalized Ratio 1.1 INR Activated Partial Thromboplast Time 23 SECONDS (22-32) Coagulation Comments Plan Plan 39 years old male with history of retirement in August, multisubstance abuse, possible COPD presented to the ED due to shortness of breath Community-acquired pneumonia, RLL Acute hypercapnic respiratory failure COPD exacerbation Negative COVID in ED, COVID negative, rechecked CTA negative for PE, consolidative atelectasis in the right lung base may contain a component of infection or aspiration Reported history of latent TB however there is no clear documentation We ordered interferon gamma release assay for evaluation of TB, which is pending Rifampin is a cytochrome P 450 inducer, should not be used with Suboxone If patient has latent TB, needs to be started on isoniazid for nine months; however because patient is homeless needs to be connected to primary care doctor or Infectious Disease as an outpatient to make sure patient is taking medication regularly 02/01/25: patient is on room air, Continue ceftriaxone, completed a course of azithromycin Final Positive blood culture showed Staph hominis which possibly is contaminated, vancomycin DCed Consider decreasing the amount of corticosteroid waiting for interferon gamma release assay for evaluation of TB Bipolar disorder/psychiatric issue As medication reconciliation patient is on valproic acid, do not start rifampin, which is a strong inducer can cause increased clearance of valproic acid Angela Walker MD Internal Medicine Resident Date of Service: Feb 01, 2025 Billing Provider: JOY PELAYO DO Addendum Patient seen and examined with Dr. Walker on date of service 02/01/25. Agree with the above assessment and plan. Patient is much improved on his current treatment for COPD exacerbation and, from ID perspective, CAP. He was down to RA and walking to the bathroom. Continue Rocephin, wean steroids as quickly as can tolerate, and follow up Quantiferon ANGELA WALKER, RES Feb 01, 2025 15:29 JOY PELAOY DO Feb 02, 2025 08:30
--- NOTE | 2025-02-01 17:08 | PROGRESS NOTE- Residence ---
Progress Note - Resident Providers to CC Resident Creating Document: AKIRA PENA RES CC: RAJAT MASSEY MD ~ Antibiotic Timeout Antibiotic Ordered?: Yes Subjective Patient seen and examined at the bedside, awake oriented, on room air. Denied shortness of breath chest pain or any new symptoms Objective Vital Signs Date Time Temp Pulse Resp B/P (MAP) Pulse Ox O2 Delivery O2 Flow Rate FiO2 02/01/25 15:50 98.0 92 20 152/88 (109) 90 Room Air 02/01/25 15:18 0.0 02/01/25 15:12 21 Result Diagram: 02/01/2552302/01/25523 General: Well alert, well oriented, not confused, not agitated, not in acute distress, well cooperated during the physical. HEENT: Conjunctive are pink, sclerae clear, no icterus, pupil is equal in both sides, reactive to light, no ear discharge, no pharyngeal erythema or an edema. Neck: Supple, no JVD, no lymphadenopathy and thyromegaly. Chest: Equal air entry on both lungs, occasional wheeze heard in all lung knox, no Crepts. Cardiovascular: S1-S2 regular sinus rhythm and, regular rate, no gallops, no rubs, no murmurs Abdomen: No visible peristalsis, Bowel sounds present on auscultation, soft, nontender, no guarding, no rigidity Extremities: Tremors in his hands, capillary refill intact, peripheral pulsations are intact on both sides Central Nervous System: No focal neurological deficits, no motor or sensory weakness in all 4 extremities, could move all 4 extremities, 2+ deep tendon reflexes, negative Babinski. Musculoskeletal: No joint swelling, deformities and inflammations Skin: Warm and dry. Coagulation Studies Laboratory Tests Test 01/30/25 15:13 Prothrombin Time 11.2 SECONDS (9.0-12.0) INR International Normalized Ratio 1.1 INR Activated Partial Thromboplast Time 23 SECONDS (22-32) Coagulation Comments Plan Plan Patient attended here for acute exacerbation of COPD. Plan: Acute Exacerbation of COPD Acute Hypooxemic Respiratory Failure Superimposed on Bacterial Pneumonia Respiratory acidosis with Near Compensation Chest x-ray: 1. Low lung volumes with interstitial opacities suggesting edema or atypical infection. Repeat Chest X-ray: Suggestive of pulmonary vascular congestion COVID-19 negative, repeated COVID-19 test negative WBCs trending upward, lactic acid 1.5, procalcitonin normal Serial troponin negative, proBNP 98 Preliminary blood cultures showed STAPH HOMINIS SSP HOMINIS possbily contaminated. In view of this dced vancomycin today Today last dose of azithroymcin, completed 3 days. DuoNeb 2 puffs q.4h Decrease patient solumedrol from 60 mg Q8H to 40 mg Q8h Patient was on BiPAP maintaining oxygen sat 90-92, today patient maintaining oxygen satt without bipap. CTA CHEST :1. No pulmonary embolism to the level of the segmental arteries, Consolidative atelectasis in the right lung base may contain a component of infection or aspiration, or may be secondary to chronic right hemidiaphragm elevation. Echo Shows: Normal LV size and function. Mild concentric hypertrophy. LVEF is 65-70%. Right ventricle is moderately dilated with normal function. Estimated PA systolic pressure is 46 mmHg. Latent tuberculosis Diagnosed in [facility] Dced isoniazid 300 mg p.o. daily, rifampin 300 mg p.o. daily, vitamin-B 650 mg p.o. daily. Consulted ID consulted Dr. Gonsales who discontinued isoniazid and rifampin recommended QuantiFERON gold and repeat COVID19 Repeat COVID 19 negative Possible Obstructive Sleep Apnea Recomended outpatient sleep studies. Mobid Obesity Opiod Use Disorder Continue Suboxone Bipolar Diorder/Schizoaffective Disorder Continue lithium Code status: Full code DVT prophylaxis: SCDs Analgesia/sedation: Morphine/[place] p.r.n. Line/tube: PIV GI prophylaxis: None Nutrition: Regular diet PT: Ordered. Disposition: Patient is very sick please keep an close eye on patient, today patient maintaining oxygen sat on room air if needed keep patient on oxygen. Consulted ID consulted Dr. Gonsales who discontinued isoniazid and rifampin recommended QuantiFERON gold, repeat COVID 19. Follow up with Quantiferon, results awaiting Critical Care Time: Total of 45 minutes spent Akira Pena PGY 1 INTERNAL MEDICINE RESIDENT Date of Service: Feb 01, 2025 Billing Provider: RAJAT MASSEY MD,AKIRA, RES Feb 01, 2025 17:08
[2025-02-01] MEDS ORDERED: VANCOMYCIN LEVEL IV ONE (23:30)
[2025-02-02] VITALS (8 sets, daily range): BP systolic 127–135; BP diastolic 88–91; PULSE 66–110; RESP 14–23; TEMP 97.6–97.7; O2SAT 90–94
[2025-02-02] MEDS: methylPREDNISolone sod succ/PF 40mg inj. IV SCH (00:20)
[2025-02-02 06:15] LABS: MEAN PLATELET VOLUME 10.0 FL (7.4-10.4); RED CELL DISTRIBUTION WIDTH 14.2 % (11.5-14.5)
[2025-02-02 06:21] LABS: CREATININE 0.68 MG/DL (0.60-1.10); TOTAL CARBON DIOXIDE 31.5 MMOL/L (24-32); eCRCL 170 ML/MIN; eGFR > 90 ML/MIN
--- NOTE | 2025-02-02 11:50 | PROGRESS NOTE- Residence ---
Progress Note - Resident Providers to CC Resident Creating Document: ANGELA WALKER RES ~ Antibiotic Timeout Antibiotic Ordered?: Yes Subjective Patient seen and examined at the bedside, no any overnight event he is on room air denied any shortness of breaths Objective Vital Signs Date Time Temp Pulse Resp B/P (MAP) Pulse Ox O2 Delivery O2 Flow Rate FiO2 02/02/25 08:30 82 02/02/25 08:00 Room Air 02/02/25 07:35 21 0.0 02/02/25 07:29 90 21 02/02/25 02:00 97.6 127/91 (103) Result Diagram: 02/02/25 0536 02/02/25 0536 General: Awake and Alert, no acute distress. HEENT: Conjunctiva pink, Sclera clear, Mucus Membranes moist. Neck: Supple without masses and tenderness. Resp: Diminished breath sounds bilaterally at the bases of lung, no wheezing Heart: Regular Rate and rhythm, normal S1 and S2 Abdomen: Soft and non tender no organomegaly Extremities: No cyanosis,clubbing or edema. Skin: Warm and Dry. Neurological: Speech is clear, alert, and oriented x 4, no gross neurological deficits Coagulation Studies Laboratory Tests Test 01/30/25 15:13 Prothrombin Time 11.2 SECONDS (9.0-12.0) INR International Normalized Ratio 1.1 INR Activated Partial Thromboplast Time 23 SECONDS (22-32) Coagulation Comments Plan Plan 39 years old male with history of care home in August, multisubstance abuse, possible COPD presented to the ED due to shortness of breath Community-acquired pneumonia, RLL Acute hypercapnic respiratory failure COPD exacerbation Negative COVID in ED, COVID negative, rechecked CTA negative for PE, consolidative atelectasis in the right lung base may contain a component of infection or aspiration Reported history of latent TB however there is no clear documentation We ordered interferon gamma release assay for evaluation of TB, which is pending Rifampin is a cytochrome P 450 inducer, should not be used with Suboxone If patient has latent TB, needs to be started on isoniazid for nine months; however because patient is homeless needs to be connected to primary care doctor or Infectious Disease as an outpatient to make sure patient is taking medication regularly 02/01/25: patient is on room air, Continue ceftriaxone, completed a course of azithromycin Final Positive blood culture showed Staph hominis which possibly is contaminated, vancomycin DCed Consider decreasing the amount of corticosteroid waiting for interferon gamma release assay for evaluation of TB, patient can discharged home. Dr. Kim we will follow-up the result of interferon gamma release assay and inform patient if need any treatment Bipolar disorder/psychiatric issue on valproic acid, do not start rifampin, which is a strong inducer can cause increased clearance of valproic acid Angela Walker MD Internal Medicine Resident Infectious disease progress note Agree with above note. Pt seen and examined with Dr. Walker. He can DC home and I will f/u [facility] result. I will contact him with results. Date of Service: Feb 02, 2025 Billing Provider: ANETA KIM MD, ELAHE, RES Feb 02, 2025 11:50 ANETA KIM MD Feb 02, 2025 22:38
[2025-02-02] MEDS ORDERED: LACT1CAP26 PO (13:54)
[2025-02-02] MEDS ORDERED: PRED10TA PO (13:54)
[2025-02-02] MEDS ORDERED: NOR5T PO (13:54)
[2025-02-02] MEDS ORDERED: CEFD300C3 PO (13:54)
[2025-02-02] MEDS ORDERED: ALBU2.5V7 NEB (13:54)
--- NOTE | 2025-02-02 22:08 | DISCHARGE SUMMARY-Residence ---
Discharge Summary Providers to CC Resident Creating Document: AKIRA LEUNG RES ~ Discharge Summary Admission Diagnosis: Atypical pneumonia Hospital Course DATE OF ADMISSION: 01/30/25 DATE OF DISCHARGE: 02/02/25 Condition on DC: Stable Date of Service: Feb 02, 2025 Billing Provider: RAJAT MASSEY MD, SANJAY, RES Feb 02, 2025 22:08
== END 2025-02-02 15:05 | disposition home or self-care (01) | DRG 140 ==
LOC: ER 21:05 → ED HOLD 01-30 02:47 → PCU 3S 01-30 07:45
PROVIDERS: ADMIT Internal Medicine; ATTEND Family Medicine
PROC: B32T1ZZ Computerized Tomography (CT Scan) of Left Pulmonary Artery using Low Osmolar Contrast (ICD-10-PCS; principal; 2025-01-30)
PROC: B3201ZZ Computerized Tomography (CT Scan) of Thoracic Aorta using Low Osmolar Contrast (ICD-10-PCS; 2025-01-30)
PROC: B32S1ZZ Computerized Tomography (CT Scan) of Right Pulmonary Artery using Low Osmolar Contrast (ICD-10-PCS; 2025-01-30)
PROC: 5A0935A Assistance with Respiratory Ventilation, Less than 24 Consecutive Hours, High Flow/Velocity Cannula (ICD-10-PCS; 2025-01-31)
PROC: 5A09357 Assistance with Respiratory Ventilation, Less than 24 Consecutive Hours, Continuous Positive Airway Pressure (ICD-10-PCS; 2025-01-31)
PROC: 5A0935A Assistance with Respiratory Ventilation, Less than 24 Consecutive Hours, High Flow/Velocity Cannula (ICD-10-PCS; 2025-02-01)
DX: J44.1 Chronic obstructive pulmonary disease with (acute) exacerbation (principal); J96.01 Acute respiratory failure with hypoxia; E87.4 Mixed disorder of acid-base balance; J15.9 Unspecified bacterial pneumonia; F11.90 Opioid use, unspecified, uncomplicated; F20.9 Schizophrenia, unspecified; Z20.822 Contact with and (suspected) exposure to COVID-19; G89.29 Other chronic pain; M54.9 Dorsalgia, unspecified; F17.210 Nicotine dependence, cigarettes, uncomplicated; J44.0 Chronic obstructive pulmonary disease with (acute) lower respiratory infection; F31.9 Bipolar disorder, unspecified; E66.01 Morbid (severe) obesity due to excess calories; Z68.39 Body mass index [BMI] 39.0-39.9, adult
CPT/HCPCS: 36415; 36600; 70450; 71045; 71275; 76700; 80053; 80061; 80202; 80305; 80320; 81001; 82140; 82803; 83036; 83605; 83735; 83880; 84145; 84484; 85018; 85025; 85610; 85651; 85730; 86140; 86480; 87040; 87077; 87081; 87186; 87811; 93005; 93306; 93970; 94640; 94660; 94760; 96374; 99285; A4615; A6258; A7015; G0378; J0456; J0696; J1100; J1938; J2270; J2405; J2919; J3373; J3374; J3375; J7030; J7040; Q9967